=== PATIENT | male | born 1950 | race African-American/Black ===

== ENCOUNTER 2018-03-11 01:21 | Inpatient (IN) | payer MEDICARE, MEDICAID ==
[~2018-03-11] VITALS: Ht 172.7 cm; Wt 59.0 kg
[~2018-03-11 01:21] MED LIST: ASPIRIN; HYDROCHLOROTHIAZIDE
[2018-03-11] MEDS ORDERED: SODIUM CHLORIDE 0.9% 1,000 ML IV ONE ×2 (03:19→03:21)
[2018-03-11 07:01] LABS: CHLORIDE 96 mEq/L (98-107)
[2018-03-11 07:03] LABS: BASOPHILS % 0.3 % (0.0-2.0); HEMATOCRIT. 46.7 % (42.0-52.0); LYMPHOCYTES % 28.7 % (20.0-50.0); MEAN CORPUSCULAR HEMOGLOBIN 28.2 pg (28.0-32.0); MEAN CORPUSCULAR VOLUME 87.4 fL (80.0-94.0); MEAN PLATELET VOLUME 8.8 fl (7.4-10.4); MONOCYTES % 13.5 % (2.0-8.0); NEUTROPHILS % 56.5 % (40.0-76.0); PLATELET 308 x1000/uL (130-400); RED BLOOD CELL COUNT 5.34 mill/uL (4.7-6.1); RED CELL DISTRIBUTION WIDTH 16.1 % (11.6-14.6)
[2018-03-11 07:04] LABS: PARTIAL THROMBOPLASTIN TIME 28.5 sec (23.4-31.0); PROTHROMBIN TIME 10.4 sec (9.1-11.1)
[2018-03-11 07:39] LABS: CLARITY URINE CLOUDY (CLEAR); COLOR URINE YELLOW (YELLOW); KETONES URINE NEGATIVE (NEGATIVE); LEUKOCYTE ESTERASE URINE 3+ (NEGATIVE); NITRITE URINE NEGATIVE (NEGATIVE); OCCULT BLOOD URINE 1+ (NEGATIVE); PROTEIN URINE NEGATIVE (NEGATIVE); SPECIFIC GRAVITY URINE 1.008 (1.005-1.030); UROBILINOGEN URINE 0.2 E.U./dL (0.2-1.0)
[2018-03-11] MEDS ORDERED: MAGNESIUM/ALUMINUM HYDROXIDE/SIMETHICONE 30ML UDC PO PRN (10:30)
[2018-03-11] MEDS ORDERED: CLONIDINE 0.1MG TABLET PO PRN (10:30)
[2018-03-11] MEDS ORDERED: ONDANSETRON HCL 4MG/2ML INJ IV PRN (10:30)
[2018-03-11] MEDS ORDERED: GUAIFENESIN 200MG/10ML SUGAR FREE UDC PO PRN (10:30)
[2018-03-11] MEDS ORDERED: IPRATROPIUM/ALBUTEROL 0.5-3(2.5)MG/3ML NEB INH PRN (10:30)
[2018-03-11] MEDS ORDERED: ACETAMINOPHEN 325MG TABLET PO PRN (10:30)
[2018-03-11] MEDS ORDERED: DOCUSATE SODIUM 100MG CAPSULE PO PRN (10:30)
[2018-03-11 11:30] VITALS: BP 135/54
[2018-03-11 12:30] VITALS: BP 135/54
[2018-03-11] MEDS ORDERED: CEFTRIAXONE 1,000 MG in DEXTROSE 5% WATER 50 ML IV SCH (15:30)
[2018-03-11 16:00] VITALS: BP 112/56
[2018-03-11] MEDS: LOSARTAN POTASSIUM 25 MG TABLET PO SCH (18:45)
[2018-03-11] MEDS: PANTOPRAZOLE SODIUM 40 MG/VIAL IV SCH (18:46)
[2018-03-11] MEDS: ASPIRIN 81MG EC TABLET PO SCH (18:46)
[2018-03-11] MEDS: ENOXAPARIN 40MG/0.4ML SYR SUBCUT SCH (18:46)
[2018-03-11 20:00] VITALS: BP 122/64
[2018-03-11] MEDS ORDERED: AMIO100T4 PO (20:16)
[2018-03-11] MEDS ORDERED: ACYC200C PO (20:16)
[2018-03-11] MEDS ORDERED: BENA10TA10 PO (20:16)
[2018-03-11] MEDS ORDERED: PRAV40TA58 PO (20:16)
[2018-03-11] MEDS ORDERED: SENN8.6T71 PO (20:16)
[2018-03-11] MEDS ORDERED: CARV3.1242 PO (20:16)
[2018-03-11] MEDS ORDERED: SPIR25TA6 PO (20:16)
[2018-03-11] MEDS ORDERED: FURO20TA4 PO (20:16)
[2018-03-11] MEDS: AMLODIPINE 5MG TABLET PO SCH (21:12)
[2018-03-11] MEDS: CARVEDILOL 3.125 MG TABLET PO SCH (21:12)
[2018-03-11] MEDS: ATORVASTATIN CALCIUM 40MG TABLET PO SCH (21:12)
[2018-03-12] VITALS: BP 149/93
[2018-03-12 04:00] VITALS: BP 101/45
[2018-03-12 07:29] LABS: CHLORIDE 96 mEq/L (98-107)
[2018-03-12 07:31] LABS: HEMATOCRIT. 40.2 % (42.0-52.0); HEMOGLOBIN. 13.1 g/dL (14.0-18.0); MEAN CORPUSCULAR HEMOGLOBIN 28.3 pg (28.0-32.0); MEAN CORPUSCULAR VOLUME 86.8 fL (80.0-94.0); MEAN PLATELET VOLUME 8.6 fl (7.4-10.4); PLATELET 311 x1000/uL (130-400); RED BLOOD CELL COUNT 4.62 mill/uL (4.7-6.1); RED CELL DISTRIBUTION WIDTH 16.4 % (11.6-14.6)
[2018-03-12 07:36] LABS: PHOSPHORUS 3.2 mg/dL (2.5-4.9)
[2018-03-12 07:37] LABS: LDL CHOLESTEROL 76 mg/dL (5-100)
[2018-03-12 07:39] LABS: HDL CHOLESTEROL 67 mg/dL (40-59)
[2018-03-12 08:00] VITALS: BP 102/55
[2018-03-12] MEDS: CARVEDILOL 3.125 MG TABLET PO SCH ×2 (09:00→22:11)
[2018-03-12] MEDS: AMLODIPINE 5MG TABLET PO SCH ×2 (09:00→22:12)
[2018-03-12] MEDS: LOSARTAN POTASSIUM 25 MG TABLET PO SCH (09:00)
[2018-03-12] MEDS: ASPIRIN 81MG EC TABLET PO SCH (09:39)
[2018-03-12] MEDS: PANTOPRAZOLE SODIUM 40 MG/VIAL IV SCH (09:39)
[2018-03-12 12:28] VITALS: BP 102/44
[2018-03-12 12:33] LABS: PLATELET ESTIMATE NORMAL
[2018-03-12 16:25] VITALS: BP 110/52
[2018-03-12] MEDS: SODIUM CHLORIDE 0.9% 1,000 ML IV SCH (16:40)
[2018-03-12] MEDS: CEFTRIAXONE 1,000 MG in DEXTROSE 5% WATER 50 ML IV SCH (17:17)
[2018-03-12] MEDS: ENOXAPARIN 40MG/0.4ML SYR SUBCUT SCH (17:18)
[2018-03-12 20:00] VITALS: BP 125/56
[2018-03-12] MEDS: ATORVASTATIN CALCIUM 40MG TABLET PO SCH (22:11)
[2018-03-13] VITALS: BP 125/58
[2018-03-13] MEDS: SODIUM CHLORIDE 0.9% 1,000 ML IV SCH ×2 (03:50→17:10)
[2018-03-13 04:00] VITALS: BP 141/81
[2018-03-13 07:37] LABS: BASOPHILS % 0.6 % (0.0-2.0); HEMATOCRIT. 41.1 % (42.0-52.0); HEMOGLOBIN. 13.3 g/dL (14.0-18.0); LYMPHOCYTES % 30.1 % (20.0-50.0); MEAN CORPUSCULAR HEMOGLOBIN 28.1 pg (28.0-32.0); MEAN CORPUSCULAR VOLUME 86.8 fL (80.0-94.0); MEAN PLATELET VOLUME 8.6 fl (7.4-10.4); MONOCYTES % 14.4 % (2.0-8.0); NEUTROPHILS % 52.9 % (40.0-76.0); PLATELET 296 x1000/uL (130-400); RED BLOOD CELL COUNT 4.73 mill/uL (4.7-6.1); RED CELL DISTRIBUTION WIDTH 15.9 % (11.6-14.6)
[2018-03-13 08:00] VITALS: BP 134/60
[2018-03-13] MEDS: PANTOPRAZOLE SODIUM 40 MG/VIAL IV SCH (09:00)
[2018-03-13] MEDS: LOSARTAN POTASSIUM 25 MG TABLET PO SCH (10:12)
[2018-03-13] MEDS: AMLODIPINE 5MG TABLET PO SCH (10:13)
[2018-03-13] MEDS: CARVEDILOL 3.125 MG TABLET PO SCH (10:13)
[2018-03-13] MEDS: ASPIRIN 81MG EC TABLET PO SCH (10:13)
[2018-03-13 10:54] LABS: CHLORIDE 99 mEq/L (98-107)
[2018-03-13 12:00] VITALS: BP 138/64
[2018-03-13] MEDS: CEFTRIAXONE 1,000 MG in DEXTROSE 5% WATER 50 ML IV SCH (14:00)
[2018-03-13 16:00] VITALS: BP 123/68
[2018-03-13 16:05] VITALS: BP 125/66
[2018-03-13] MEDS: ENOXAPARIN 40MG/0.4ML SYR SUBCUT SCH (17:19)
== END 2018-03-13 19:35 | disposition home health service (06) | DRG 689 ==
LOC: ER 01:21 → 5WST 05:33 → EDBEDREQ 05:35 → ENRESERV 11:18
PROVIDERS: ADMIT Family Medicine Adult Medicine; ATTEND Family Medicine Adult Medicine
DX: N39.0 Urinary tract infection, site not specified (principal); I50.33 Acute on chronic diastolic (congestive) heart failure; E87.1 Hypo-osmolality and hyponatremia; I69.351 Hemiplegia and hemiparesis following cerebral infarction affecting right dominant side; I42.9 Cardiomyopathy, unspecified; I11.0 Hypertensive heart disease with heart failure; B96.20 Unspecified Escherichia coli [E. coli] as the cause of diseases classified elsewhere; I50.9 Heart failure, unspecified; E78.00 Pure hypercholesterolemia, unspecified; J44.9 Chronic obstructive pulmonary disease, unspecified; Z79.82 Long term (current) use of aspirin; Z79.899 Other long term (current) drug therapy
CPT/HCPCS: 36415; 71045; 74176; 80048; 80061; 82140; 83605; 83735; 83880; 84100; 84484; 87077; 87186; 93005; 93306; 93970; 96360; 96361; 97162; 99285; C1893; C9113; J0696; J1650; J7030; J7040; J7060; A4315

== ENCOUNTER 2019-03-28 22:50 | Emergency (ER) | payer MEDICARE, MEDICAID ==
[~2019-03-28] VITALS: Ht 175.3 cm; Wt 60.0 kg
[~2019-03-28 22:50] MED LIST changes: +ACYC200C PO; +AMIO100T4 PO; +BENA10TA74 PO; +FURO20TA4 PO; -HYDROCHLOROTHIAZIDE; +LEVO500T2 MT; +PRAV40TA58 PO; +SENN8.6T71 PO
[2019-03-29 02:17] VITALS: BP 164/80
== END 2019-03-29 03:04 | disposition home or self-care (01) ==
LOC: ER 22:50
DX: T83.098A Other mechanical complication of other urinary catheter, initial encounter (principal); I69.351 Hemiplegia and hemiparesis following cerebral infarction affecting right dominant side; I11.0 Hypertensive heart disease with heart failure; Z79.82 Long term (current) use of aspirin; Z86.19 Personal history of other infectious and parasitic diseases; Y84.6 Urinary catheterization as the cause of abnormal reaction of the patient, or of later complication, without mention of misadventure at the time of the procedure; Y92.018 Other place in single-family (private) house as the place of occurrence of the external cause
CPT/HCPCS: 51702; 99284

== ENCOUNTER 2019-04-30 21:09 | Inpatient (IN) | payer MEDICARE, MEDICAID ==
[~2019-04-30] VITALS: Ht 172.7 cm; Wt 61.2 kg
[2019-04-30] MEDS ORDERED: METHYLPREDNISOLONE SOD SUCC 125 MG/2 ML VIAL IV STA (22:47)
[2019-04-30] MEDS ORDERED: LEVOFLOXACIN 500MG PREMIX 100 ML IV ONE (23:00)
[2019-04-30] MEDS ORDERED: IPRATROPIUM/ALBUTEROL 0.5-3(2.5)MG/3ML NEB HHN ONE (23:00)
[2019-04-30 23:27] LABS: BASOPHILS % 0.4 % (0.0-2.0); EOSINOPHILS % 3.2 % (0.0-5.0); HEMATOCRIT. 46.1 % (42.0-52.0); HEMOGLOBIN. 15.1 g/dL (14.0-18.0); LYMPHOCYTES % 30.2 % (20.0-50.0); MEAN CORPUSCULAR HEMOGLOBIN 29.2 pg (28.0-32.0); MEAN CORPUSCULAR VOLUME 89.3 fL (80.0-94.0); MEAN PLATELET VOLUME 9.5 fl (7.4-10.4); MONOCYTES % 12.4 % (2.0-8.0); NEUTROPHILS % 53.8 % (40.0-76.0); PLATELET 230 x1000/uL (130-400); RED BLOOD CELL COUNT 5.17 mill/uL (4.7-6.1)
[2019-04-30 23:36] LABS: CHLORIDE 104 mEq/L (98-107); PARTIAL THROMBOPLASTIN TIME 26.9 sec (23.4-31.0); PROTHROMBIN TIME 10.6 sec (9.6-11.0)
[2019-04-30 23:59] LABS: CLARITY URINE TURBID (CLEAR); COLOR URINE YELLOW (YELLOW); KETONES URINE NEGATIVE (NEGATIVE); LEUKOCYTE ESTERASE URINE 3+ (NEGATIVE); NITRITE URINE POSITIVE (NEGATIVE); OCCULT BLOOD URINE NEGATIVE (NEGATIVE); PH URINE 8.5 (4.5-8.0); PROTEIN URINE NEGATIVE (NEGATIVE); SPECIFIC GRAVITY URINE 1.012 (1.005-1.030); UROBILINOGEN URINE 0.2 E.U./dL (0.2-1.0)
[2019-05-01] MEDS ORDERED: SPIR25TA6 MT (01:26)
[2019-05-01] MEDS ORDERED: CARV3.1242 MT (01:26)
[2019-05-01] MEDS ORDERED: ASPI-1497 PO (01:26)
[2019-05-01] MEDS ORDERED: HYDRALAZINE 20MG/ML VIAL IV PRN (07:45)
[2019-05-01] MEDS ORDERED: DOCUSATE SODIUM 100MG CAPSULE PO PRN (07:45)
[2019-05-01] MEDS ORDERED: MAGNESIUM/ALUMINUM HYDROXIDE/SIMETHICONE 30ML UDC PO PRN (07:45)
[2019-05-01] MEDS ORDERED: LORAZEPAM 2MG/ML CPJ IV PRN (07:45)
[2019-05-01] MEDS ORDERED: ONDANSETRON HCL 4MG/2ML INJ IV PRN (07:45)
[2019-05-01] MEDS ORDERED: IPRATROPIUM/ALBUTEROL 0.5-3(2.5)MG/3ML NEB HHN PRN (07:45)
[2019-05-01] MEDS ORDERED: CLONIDINE 0.1MG TABLET PO PRN (07:45)
[2019-05-01] MEDS ORDERED: DIPHENHYDRAMINE 50MG/ML VIAL IV PRN (07:45)
[2019-05-01] MEDS ORDERED: GUAIFENESIN 200MG/10ML SUGAR FREE UDC PO PRN (07:45)
[2019-05-01] MEDS ORDERED: ACETAMINOPHEN 325MG TABLET PO PRN (07:45)
[2019-05-01] MEDS ORDERED: CEFTRIAXONE 1 G PREMIX 50 ML IV SCH (07:45)
[2019-05-01 09:25] VITALS: BP 157/103
[2019-05-01] MEDS ORDERED: MORPHINE SULFATE 2 MG/ML CPJ (NOT FOR IM USE) IV PRN (11:19)
[2019-05-01] MEDS ORDERED: HYDROCODONE/ACETAMINOPHEN 10/325MG TABLET PO PRN (11:19)
[2019-05-01 11:26] VITALS: BP 157/103
[2019-05-01] MEDS: ENOXAPARIN 40MG/0.4ML SYR SUBCUT SCH (11:43)
[2019-05-01] MEDS ORDERED: DIPHENHYDRAMINE 12.5MG/5ML UDC PO PRN (11:45)
[2019-05-01 12:00] VITALS: BP 121/66
[2019-05-01] MEDS: CEFTRIAXONE 1 G PREMIX 50 ML IV SCH (14:52)
[2019-05-01] MEDS: AMIODARONE HCL 200 MG TABLET PO SCH (14:52)
[2019-05-01] MEDS: SODIUM CHLORIDE 0.9% INJ 3ML FLUSH IVF SCH ×2 (14:53→21:24)
[2019-05-01 16:00] VITALS: BP 106/45
[2019-05-01 16:09] LABS: CREATINE KINASE 54 IU/L (39-308)
[2019-05-01 16:10] LABS: CREATINE KINASE MB FRACTION 1.7 ng/mL (0.5-3.6)
[2019-05-01 20:00] VITALS: BP 111/74
[2019-05-02] VITALS (7 sets, daily range): BP systolic 100–159; BP diastolic 40–98
[2019-05-02] MEDS: SODIUM CHLORIDE 0.9% INJ 3ML FLUSH IVF SCH ×3 (05:56→21:49)
[2019-05-02] MEDS: AMIODARONE HCL 200 MG TABLET PO SCH (08:54)
[2019-05-02] MEDS: ENOXAPARIN 40MG/0.4ML SYR SUBCUT SCH (08:54)
[2019-05-02] MEDS ORDERED: MEDICATION NOT ON FORMULARY EA (Amiodarone HCl 200 MG) PO SCH (10:00)
[2019-05-02] MEDS: ASPIRIN 81MG EC TABLET PO SCH (10:50)
[2019-05-02] MEDS: CARVEDILOL 3.125 MG TABLET PO SCH ×2 (10:50→20:54)
[2019-05-02] MEDS: BENAZEPRIL 10MG TABLET PO SCH ×2 (10:50→20:54)
[2019-05-02] MEDS: FUROSEMIDE 20MG TABLET PO SCH (10:50)
[2019-05-02] MEDS ORDERED: ACYCLOVIR 200MG CAPSULE PO SCH (11:00)
[2019-05-02] MEDS: CEFTRIAXONE 1 G PREMIX 50 ML IV SCH (13:42)
[2019-05-02] MEDS ORDERED: ATORVASTATIN CALCIUM 10MG TABLET PO SCH (21:00)
[2019-05-02] MEDS ORDERED: MEDICATION NOT ON FORMULARY EA (Pravastatin Sodium 40 MG) PO SCH (21:00)
[2019-05-02] MEDS: ACYCLOVIR 400 MG TABLET PO SCH (21:49)
[2019-05-03] VITALS: BP 112/41
[2019-05-03 04:00] VITALS: BP 148/74
[2019-05-03] MEDS: SODIUM CHLORIDE 0.9% INJ 3ML FLUSH IVF SCH ×2 (06:22→14:18)
[2019-05-03 07:04] LABS: HEMATOCRIT. 46.1 % (42.0-52.0); HEMOGLOBIN. 14.8 g/dL (14.0-18.0); MEAN CORPUSCULAR HEMOGLOBIN 28.8 pg (28.0-32.0); MEAN CORPUSCULAR VOLUME 89.4 fL (80.0-94.0); RED BLOOD CELL COUNT 5.16 mill/uL (4.7-6.1); RED CELL DISTRIBUTION WIDTH 15.1 % (11.6-14.6)
[2019-05-03 07:16] LABS: CHLORIDE 103 mEq/L (98-107)
[2019-05-03 07:25] LABS: CREATINE KINASE 43 IU/L (39-308); CREATINE KINASE MB FRACTION 1.2 ng/mL (0.5-3.6)
[2019-05-03] MEDS: CARVEDILOL 3.125 MG TABLET PO SCH (09:29)
[2019-05-03] MEDS: FUROSEMIDE 20MG TABLET PO SCH (09:29)
[2019-05-03] MEDS: ASPIRIN 81MG EC TABLET PO SCH (09:29)
[2019-05-03] MEDS: ACYCLOVIR 400 MG TABLET PO SCH (09:29)
[2019-05-03] MEDS: AMIODARONE HCL 200 MG TABLET PO SCH (09:29)
[2019-05-03] MEDS: BENAZEPRIL 10MG TABLET PO SCH (09:29)
[2019-05-03] MEDS: ENOXAPARIN 40MG/0.4ML SYR SUBCUT SCH (09:30)
[2019-05-03 12:00] VITALS: BP 146/52
[2019-05-03] MEDS: CEFTRIAXONE 1 G PREMIX 50 ML IV SCH (12:40)
[2019-05-03 14:40] VITALS: BP 146/52
[2019-05-03 16:00] VITALS: BP 103/48
== END 2019-05-03 18:30 | disposition home or self-care (01) | DRG 291 ==
LOC: ER 21:09 → 6WST 05-01 01:04 → EDBEDREQ 05-01 01:09 → EDBEDREQTM 05-01 01:09 → EDBEDREQDT 05-01 01:09 → ENRESERV 05-01 08:33
PROVIDERS: ADMIT Internal Medicine; ATTEND Internal Medicine
DX: I11.0 Hypertensive heart disease with heart failure (principal); J96.00 Acute respiratory failure, unspecified whether with hypoxia or hypercapnia; N39.0 Urinary tract infection, site not specified; I50.23 Acute on chronic systolic (congestive) heart failure; I69.30 Unspecified sequelae of cerebral infarction; Z79.899 Other long term (current) drug therapy
CPT/HCPCS: 36415; 71045; 80053; 81003; 82550; 82553; 83605; 83880; 84484; 85025; 87804; 93005; 93970; 94640; 99285; J0696; J1650; J1956; J2930

== ENCOUNTER 2019-05-06 09:24 | Inpatient (IN) | payer MEDICARE, MEDICAID ==
[~2019-05-06] VITALS: Ht 177.8 cm; Wt 78.9 kg
[~2019-05-06 09:24] MED LIST changes: +ASPI-1497 PO; -ASPIRIN; +CARV3.1242 MT; +SPIR25TA6 MT
[2019-05-06] MEDS ORDERED: ALBUTEROL (0.083%) 2.5MG/3ML NEB HHN STA (09:40)
[2019-05-06] MEDS ORDERED: IPRATROPIUM BROMIDE (0.02%) 0.5MG/2.5ML NEB HHN STA (09:40)
[2019-05-06] MEDS ORDERED: ASPIRIN 81MG TABLET PO ONE (09:45)
[2019-05-06] MEDS ORDERED: NITROGLYCERIN 0.4MG TABLET SL SL PRN (09:45)
[2019-05-06 10:21] LABS: BASOPHILS % 0.3 % (0.0-2.0); EOSINOPHILS % 3.4 % (0.0-5.0); HEMATOCRIT. 43.1 % (42.0-52.0); MEAN CORPUSCULAR HEMOGLOBIN 28.9 pg (28.0-32.0); MEAN CORPUSCULAR VOLUME 88.8 fL (80.0-94.0); MONOCYTES % 4.7 % (2.0-8.0); NEUTROPHILS % 62.6 % (40.0-76.0); PLATELET 209 x1000/uL (130-400); RED BLOOD CELL COUNT 4.85 mill/uL (4.7-6.1); RED CELL DISTRIBUTION WIDTH 15.4 % (11.6-14.6)
[2019-05-06 11:38] LABS: CHLORIDE 107 mEq/L (98-107)
[2019-05-06 12:40] LABS: BG BASE EXCESS -2.5 mmol/L (-2.0-2.0); BG BILEVEL POS AIRWAY PRESSURE 15/5; BG CARBOXYHEMOGLOBIN 0.2 % (0.5-1.5); BG DEOXYHEMOGLOBIN 0.6 % (0.0-5.0); BG FRACTION INSPIRED OXYGEN 50; BG HCO3 ACT 22.2 mmol/L (22.0-26.0); BG OXYGEN SATURATION 99.4 % (92.0-98.5); BG OXYHEMOGLOBIN 99.2 % (94.0-97.0); BG PH 7.384 (7.350-7.450); BG PO2 194.1 mmHg (75.0-100.0); BG SAMPLE SITE LEFT BRACHIAL; BG TOTAL HEMOGLOBIN 13.7 g/dL (12.0-18.0); BG VENT MODE MASK - BIPAP
[2019-05-06] MEDS ORDERED: FUROSEMIDE 40MG/4ML VIAL IVP ONE (13:00)
[2019-05-06 16:00] VITALS: BP 158/55
[2019-05-06 16:20] VITALS: BP 149/51
[2019-05-06 16:30] VITALS: BP 149/51
[2019-05-06] MEDS ORDERED: DIPHENHYDRAMINE 50MG/ML VIAL IV PRN (19:45)
[2019-05-06] MEDS ORDERED: ONDANSETRON HCL 4MG/2ML INJ IV PRN (19:45)
[2019-05-06] MEDS ORDERED: MORPHINE SULFATE 2 MG/ML CPJ (NOT FOR IM USE) IV PRN (19:45)
[2019-05-06] MEDS ORDERED: IPRATROPIUM/ALBUTEROL 0.5-3(2.5)MG/3ML NEB HHN PRN (19:45)
[2019-05-06] MEDS ORDERED: ACETAMINOPHEN 325MG TABLET PO PRN (19:45)
[2019-05-06] MEDS ORDERED: HYDRALAZINE 20MG/ML VIAL IV PRN (19:45)
[2019-05-06] MEDS ORDERED: HYDROCODONE/ACETAMINOPHEN 10/325MG TABLET PO PRN (19:45)
[2019-05-06] MEDS ORDERED: LORAZEPAM 2MG/ML CPJ IV PRN (19:45)
[2019-05-06] MEDS ORDERED: DOCUSATE SODIUM 100MG CAPSULE PO PRN (19:45)
[2019-05-06] MEDS ORDERED: MAGNESIUM/ALUMINUM HYDROXIDE/SIMETHICONE 30ML UDC PO PRN (19:45)
[2019-05-06] MEDS ORDERED: GUAIFENESIN 200MG/10ML SUGAR FREE UDC PO PRN (19:45)
[2019-05-06] MEDS ORDERED: CLONIDINE 0.1MG TABLET PO PRN (19:45)
[2019-05-06 20:00] VITALS: BP 129/50
[2019-05-06] MEDS: ENOXAPARIN 40MG/0.4ML SYR SUBCUT SCH (21:21)
[2019-05-06] MEDS: SODIUM CHLORIDE 0.9% INJ 3ML FLUSH IVF SCH (21:40)
[2019-05-06] MEDS ORDERED: LEVE500T19 PO (23:28)
[2019-05-06 23:54] LABS: CREATINE KINASE MB FRACTION 2.5 ng/mL (0.5-3.6)
[2019-05-07] VITALS: BP 115/40
[2019-05-07] MEDS: IPRATROPIUM/ALBUTEROL 0.5-3(2.5)MG/3ML NEB HHN PRN ×2 (00:48→05:42)
[2019-05-07 04:00] VITALS: BP 140/50
[2019-05-07] MEDS: SODIUM CHLORIDE 0.9% INJ 3ML FLUSH IVF SCH ×3 (05:44→20:54)
[2019-05-07 07:07] LABS: BASOPHILS % 0.5 % (0.0-2.0); EOSINOPHILS % 1.9 % (0.0-5.0); HEMATOCRIT. 46.1 % (42.0-52.0); HEMOGLOBIN. 14.6 g/dL (14.0-18.0); LYMPHOCYTES % 31.5 % (20.0-50.0); MEAN CORPUSCULAR HEMOGLOBIN 28.5 pg (28.0-32.0); MEAN CORPUSCULAR VOLUME 89.9 fL (80.0-94.0); MEAN PLATELET VOLUME 9.8 fl (7.4-10.4); MONOCYTES % 12.4 % (2.0-8.0); NEUTROPHILS % 53.7 % (40.0-76.0); PLATELET 164 x1000/uL (130-400); RED BLOOD CELL COUNT 5.13 mill/uL (4.7-6.1); RED CELL DISTRIBUTION WIDTH 15.2 % (11.6-14.6)
[2019-05-07 07:35] LABS: CHLORIDE 105 mEq/L (98-107)
[2019-05-07 07:43] LABS: CREATINE KINASE 78 IU/L (39-308); CREATINE KINASE MB FRACTION 2.9 ng/mL (0.5-3.6)
[2019-05-07 08:23] VITALS: BP 150/74
[2019-05-07] MEDS: FUROSEMIDE 40MG/4ML VIAL IVP SCH (10:26)
[2019-05-07 11:42] VITALS: BP 128/41
[2019-05-07 16:04] VITALS: BP 118/45
[2019-05-07 20:00] VITALS: BP 113/80
[2019-05-07] MEDS: ENOXAPARIN 40MG/0.4ML SYR SUBCUT SCH (20:50)
[2019-05-08] VITALS (7 sets, daily range): BP systolic 112–138; BP diastolic 40–68
[2019-05-08] MEDS: SODIUM CHLORIDE 0.9% INJ 3ML FLUSH IVF SCH ×3 (06:43→20:03)
[2019-05-08] MEDS: FUROSEMIDE 40MG/4ML VIAL IVP SCH (08:10)
[2019-05-08] MEDS: ENOXAPARIN 40MG/0.4ML SYR SUBCUT SCH (20:03)
[2019-05-09] VITALS: BP 130/60
[2019-05-09 04:00] VITALS: BP 143/62
[2019-05-09] MEDS: SODIUM CHLORIDE 0.9% INJ 3ML FLUSH IVF SCH ×2 (05:37→21:06)
[2019-05-09 08:00] VITALS: BP 142/61
[2019-05-09 08:43] LABS: CHLORIDE 106 mEq/L (98-107)
[2019-05-09] MEDS: FUROSEMIDE 40MG/4ML VIAL IVP SCH (10:03)
[2019-05-09] MEDS ORDERED: DOCUSATE SODIUM SUGAR FREE 100MG/10ML UDC PO PRN (10:15)
[2019-05-09 10:34] LABS: HEMATOCRIT. 43.1 % (42.0-52.0); HEMOGLOBIN. 14.1 g/dL (14.0-18.0); MEAN CORPUSCULAR HEMOGLOBIN 28.8 pg (28.0-32.0); MEAN CORPUSCULAR VOLUME 88.4 fL (80.0-94.0); MEAN PLATELET VOLUME 10.5 fl (7.4-10.4); PLATELET 176 x1000/uL (130-400); RED BLOOD CELL COUNT 4.87 mill/uL (4.7-6.1)
[2019-05-09] MEDS: DOCUSATE SODIUM SUGAR FREE 100MG/10ML UDC PO PRN (10:38)
[2019-05-09 12:14] LABS: PLATELET ESTIMATE NORMAL
[2019-05-09 16:00] VITALS: BP 117/56
[2019-05-09 20:00] VITALS: BP 154/65
[2019-05-09] MEDS: ENOXAPARIN 40MG/0.4ML SYR SUBCUT SCH (21:06)
[2019-05-10] VITALS (8 sets, daily range): BP systolic 106–182; BP diastolic 53–84
[2019-05-10] MEDS: SODIUM CHLORIDE 0.9% INJ 3ML FLUSH IVF SCH ×3 (05:27→21:44)
[2019-05-10] MEDS: FUROSEMIDE 40MG/4ML VIAL IVP SCH (09:11)
[2019-05-10] MEDS ORDERED: DIGOXIN 250MCG TABLET PO NR (10:45)
[2019-05-10] MEDS: LOSARTAN POTASSIUM 25 MG TABLET PO SCH (16:49)
[2019-05-10] MEDS: ENOXAPARIN 40MG/0.4ML SYR SUBCUT SCH (20:57)
[2019-05-10] MEDS: CARVEDILOL 3.125 MG TABLET PO SCH (21:44)
[2019-05-11] VITALS: BP 124/58
[2019-05-11 04:00] VITALS: BP 123/58
[2019-05-11] MEDS: SODIUM CHLORIDE 0.9% INJ 3ML FLUSH IVF SCH ×3 (05:33→21:05)
[2019-05-11 08:00] VITALS: BP 135/53
[2019-05-11] MEDS: LOSARTAN POTASSIUM 25 MG TABLET PO SCH (08:05)
[2019-05-11] MEDS: CARVEDILOL 3.125 MG TABLET PO SCH ×2 (08:05→21:04)
[2019-05-11] MEDS: FUROSEMIDE 40MG/4ML VIAL IVP SCH (08:05)
[2019-05-11 12:18] VITALS: BP 102/49
[2019-05-11] MEDS: DOCUSATE SODIUM SUGAR FREE 100MG/10ML UDC PO PRN (14:19)
[2019-05-11 16:09] VITALS: BP 100/41
[2019-05-11 20:00] VITALS: BP 114/55
[2019-05-11] MEDS: ENOXAPARIN 40MG/0.4ML SYR SUBCUT SCH (21:04)
[2019-05-12] VITALS: BP 156/71
[2019-05-12 04:00] VITALS: BP 132/68
[2019-05-12] MEDS: SODIUM CHLORIDE 0.9% INJ 3ML FLUSH IVF SCH (06:50)
[2019-05-12 08:00] VITALS: BP 154/82
[2019-05-12] MEDS: FUROSEMIDE 40MG/4ML VIAL IVP SCH (08:26)
[2019-05-12] MEDS: CARVEDILOL 3.125 MG TABLET PO SCH (08:27)
[2019-05-12] MEDS: LOSARTAN POTASSIUM 25 MG TABLET PO SCH (08:27)
[2019-05-12] MEDS ORDERED: LEVETIRACETAM 500MG TABLET PO SCH (09:00)
[2019-05-12 12:00] VITALS: BP 129/52
== END 2019-05-12 14:27 | disposition home or self-care (01) | DRG 291 ==
LOC: ER 09:24 → 6WST 12:58 → EDBEDREQTM 13:01 → EDBEDREQSVC 13:01 → ENRESERV 13:55
PROVIDERS: ADMIT Internal Medicine; ATTEND Hospitalist
DX: I11.0 Hypertensive heart disease with heart failure (principal); J96.00 Acute respiratory failure, unspecified whether with hypoxia or hypercapnia; E46 Unspecified protein-calorie malnutrition; G81.91 Hemiplegia, unspecified affecting right dominant side; I50.43 Acute on chronic combined systolic (congestive) and diastolic (congestive) heart failure; I42.9 Cardiomyopathy, unspecified; J44.9 Chronic obstructive pulmonary disease, unspecified; E78.00 Pure hypercholesterolemia, unspecified; G40.909 Epilepsy, unspecified, not intractable, without status epilepticus; H54.8 Legal blindness, as defined in USA; I69.820 Aphasia following other cerebrovascular disease
CPT/HCPCS: 36415; 36600; 71045; 80048; 80053; 82375; 82550; 82553; 82805; 82962; 83880; 84484; 85025; 93005; 93306; 93970; 94640; 94660; 97162; 97530; J0360; J1650; J1940; J2060

== ENCOUNTER 2019-07-24 00:23 | Inpatient (IN) | payer MEDICARE, MEDICAID ==
[~2019-07-24] VITALS: Ht 167.6 cm; Wt 58.1 kg
[2019-07-24] VITALS (7 sets, daily range): BP systolic 74–123; BP diastolic 40–62
[~2019-07-24 00:23] MED LIST changes: -ACYC200C PO; +LEVE500T19 PO; -LEVO500T2 MT
[2019-07-24] MEDS ORDERED: SODIUM CHLORIDE 0.9% 250 ML IV ONE ×2 (01:15→12:30)
[2019-07-24 01:37] LABS: HEMATOCRIT. 41.6 % (42.0-52.0); HEMOGLOBIN. 13.9 g/dL (14.0-18.0); MEAN CORPUSCULAR HEMOGLOBIN 29.6 pg (28.0-32.0); MEAN CORPUSCULAR VOLUME 88.9 fL (80.0-94.0); MEAN PLATELET VOLUME 8.4 fl (7.4-10.4); PLATELET 274 x1000/uL (130-400); RED BLOOD CELL COUNT 4.68 mill/uL (4.7-6.1); RED CELL DISTRIBUTION WIDTH 15.1 % (11.6-14.6)
[2019-07-24 01:45] LABS: CHLORIDE 106 mEq/L (98-107)
[2019-07-24 02:03] LABS: INR 1.1; PARTIAL THROMBOPLASTIN TIME 25.7 sec (23.4-31.0); PROTHROMBIN TIME 11.6 sec (9.6-11.0)
[2019-07-24] MEDS ORDERED: ASPIRIN 325MG TABLET PO SCH (04:15)
[2019-07-24] MEDS ORDERED: CEFTRIAXONE 1 G PREMIX 50 ML IV SCH (04:15)
[2019-07-24 06:17] LABS: PLATELET ESTIMATE NORMAL
[2019-07-24] MEDS ORDERED: ONDANSETRON HCL 4MG/2ML INJ IV PRN (06:30)
[2019-07-24] MEDS ORDERED: TRAMADOL 50MG TABLET PO PRN (06:30)
[2019-07-24] MEDS ORDERED: GUAIFENESIN 200MG/10ML SUGAR FREE UDC PO PRN (06:30)
[2019-07-24] MEDS ORDERED: DOCUSATE SODIUM 100MG CAPSULE PO PRN (06:30)
[2019-07-24] MEDS ORDERED: IPRATROPIUM/ALBUTEROL 0.5-3(2.5)MG/3ML NEB HHN PRN (06:30)
[2019-07-24] MEDS ORDERED: MAGNESIUM/ALUMINUM HYDROXIDE/SIMETHICONE 30ML UDC PO PRN (06:30)
[2019-07-24] MEDS ORDERED: NITROGLYCERIN 0.4MG TABLET SL SL PRN (06:30)
[2019-07-24] MEDS ORDERED: ACETAMINOPHEN 325MG TABLET PO PRN ×2 (06:30)
[2019-07-24] MEDS ORDERED: CLONIDINE 0.1MG TABLET PO PRN (06:30)
[2019-07-24] MEDS ORDERED: ENOXAPARIN 40MG/0.4ML SYR SUBCUT SCH (09:00)
[2019-07-24] MEDS ORDERED: LEVOFLOXACIN 500MG PREMIX 100 ML IV ONE (09:00)
[2019-07-24] MEDS: CARVEDILOL 3.125 MG TABLET PO SCH ×2 (09:00→20:47)
[2019-07-24] MEDS: ASPIRIN 325MG EC TABLET PO SCH (10:10)
[2019-07-24] MEDS: LEVETIRACETAM 500MG TABLET PO SCH ×2 (10:10→20:46)
[2019-07-24] MEDS: FAMOTIDINE 20MG TABLET PO SCH (10:10)
[2019-07-24] MEDS: ZINC SULFATE 220 MG ( 50 ) CAPSULE PO SCH (10:10)
[2019-07-24] MEDS: ASCORBIC ACID 500 MG TABLET PO SCH ×2 (10:11→20:46)
[2019-07-24] MEDS ORDERED: METH50TA5 PO (10:25)
[2019-07-24] MEDS ORDERED: METH1TAB33 PO (10:26)
[2019-07-24] MEDS ORDERED: LEVOFLOXACIN 500MG PREMIX 100 ML IV SCH (11:00)
[2019-07-24] MEDS: DUTASTERIDE 0.5MG CAPSULE PO SCH (11:55)
[2019-07-24 17:37] LABS: CREATINE KINASE MB FRACTION 3.4 ng/mL (0.5-3.6)
[2019-07-24] MEDS: TAMSULOSIN HCL 0.4MG SR CAPSULE PO SCH (20:46)
[2019-07-24] MEDS ORDERED: ZOLPIDEM TARTRATE 5MG TABLET PO PRN (21:00)
[2019-07-25] VITALS (7 sets, daily range): BP systolic 110–149; BP diastolic 59–63
[2019-07-25] MEDS ORDERED: CEFTRIAXONE 1 G PREMIX 50 ML IV SCH (05:00)
[2019-07-25] MEDS: CARVEDILOL 3.125 MG TABLET PO SCH ×2 (09:00→21:11)
[2019-07-25] MEDS: ASPIRIN 325MG EC TABLET PO SCH (09:24)
[2019-07-25] MEDS: ASCORBIC ACID 500 MG TABLET PO SCH ×2 (09:24→21:11)
[2019-07-25] MEDS: DUTASTERIDE 0.5MG CAPSULE PO SCH (09:24)
[2019-07-25] MEDS: ENOXAPARIN 30MG/0.3ML SYR SUBCUT SCH (09:24)
[2019-07-25] MEDS: ZINC SULFATE 220 MG ( 50 ) CAPSULE PO SCH (09:24)
[2019-07-25] MEDS: LEVETIRACETAM 500MG TABLET PO SCH ×2 (09:24→21:12)
[2019-07-25] MEDS: FAMOTIDINE 20MG TABLET PO SCH (09:24)
[2019-07-25 09:50] LABS: *BARBITURATES SCREEN URINE NEGATIVE (NEGATIVE); *BENZODIAZEPINES SCREEN URINE NEGATIVE (NEGATIVE); *COCAINE SCREEN URINE NEGATIVE (NEGATIVE); METHADONE URINE SCREEN NEGATIVE (NEGATIVE)
[2019-07-25 09:51] LABS: *AMPHETAMINES SCREEN URINE NEGATIVE (NEGATIVE); CANNABINOID URINE SCREEN NEGATIVE (NEGATIVE); OPIATES URINE SCREEN NEGATIVE (NEGATIVE); PHENCYCLIDINE URINE SCREEN NEGATIVE (NEGATIVE)
[2019-07-25] MEDS: LEVOFLOXACIN 250MG PREMIX 50 ML IV SCH (13:04)
[2019-07-25 20:00] LABS: BASOPHILS % 0.2 % (0.0-2.0); EOSINOPHILS % 1.9 % (0.0-5.0); HEMATOCRIT. 35.5 % (42.0-52.0); HEMOGLOBIN. 11.9 g/dL (14.0-18.0); LYMPHOCYTES % 10.7 % (20.0-50.0); MEAN CORPUSCULAR HEMOGLOBIN 29.7 pg (28.0-32.0); MEAN CORPUSCULAR VOLUME 88.7 fL (80.0-94.0); MEAN PLATELET VOLUME 8.3 fl (7.4-10.4); NEUTROPHILS % 76.2 % (40.0-76.0); PLATELET 274 x1000/uL (130-400); RED BLOOD CELL COUNT 4.01 mill/uL (4.7-6.1); RED CELL DISTRIBUTION WIDTH 15.4 % (11.6-14.6)
[2019-07-25 20:08] LABS: CHLORIDE 113 mEq/L (98-107)
[2019-07-25 20:15] LABS: PHOSPHORUS 3.5 mg/dL (2.5-4.9)
[2019-07-25 20:17] LABS: CREATINE KINASE 229 IU/L (39-308)
[2019-07-25] MEDS: TAMSULOSIN HCL 0.4MG SR CAPSULE PO SCH (21:12)
[2019-07-26] VITALS: BP 132/55
[2019-07-26 04:00] VITALS: BP 127/65
[2019-07-26 08:00] VITALS: BP 166/74
[2019-07-26] MEDS: LEVETIRACETAM 500MG TABLET PO SCH ×2 (09:23→20:42)
[2019-07-26] MEDS: ASPIRIN 325MG EC TABLET PO SCH (09:23)
[2019-07-26] MEDS: FAMOTIDINE 20MG TABLET PO SCH (09:23)
[2019-07-26] MEDS: ZINC SULFATE 220 MG ( 50 ) CAPSULE PO SCH (09:23)
[2019-07-26] MEDS: ASCORBIC ACID 500 MG TABLET PO SCH ×2 (09:23→20:42)
[2019-07-26] MEDS: CARVEDILOL 3.125 MG TABLET PO SCH ×2 (09:24→20:43)
[2019-07-26] MEDS: CEFTRIAXONE 1 G PREMIX 50 ML IV SCH (09:25)
[2019-07-26] MEDS: ENOXAPARIN 30MG/0.3ML SYR SUBCUT SCH (09:37)
[2019-07-26] MEDS: DUTASTERIDE 0.5MG CAPSULE PO SCH (11:09)
[2019-07-26] MEDS: LEVOFLOXACIN 250MG PREMIX 50 ML IV SCH (11:09)
[2019-07-26 12:00] VITALS: BP 140/67
[2019-07-26 16:00] VITALS: BP 130/62
[2019-07-26 20:00] VITALS: BP 115/62
[2019-07-26] MEDS: TAMSULOSIN HCL 0.4MG SR CAPSULE PO SCH (20:42)
[2019-07-27 00:37] VITALS: BP 136/71
[2019-07-27 04:00] VITALS: BP 136/70
[2019-07-27 08:00] VITALS: BP_SYST 159; BP_DIAS 84; BP_DIAS 89
[2019-07-27] MEDS: FAMOTIDINE 20MG TABLET PO SCH (08:52)
[2019-07-27] MEDS: LEVETIRACETAM 500MG TABLET PO SCH (08:52)
[2019-07-27] MEDS: ENOXAPARIN 30MG/0.3ML SYR SUBCUT SCH (08:52)
[2019-07-27] MEDS: DUTASTERIDE 0.5MG CAPSULE PO SCH (08:52)
[2019-07-27] MEDS: CEFTRIAXONE 1 G PREMIX 50 ML IV SCH (08:52)
[2019-07-27] MEDS: ASCORBIC ACID 500 MG TABLET PO SCH (08:52)
[2019-07-27] MEDS: CARVEDILOL 3.125 MG TABLET PO SCH (08:52)
[2019-07-27] MEDS: ASPIRIN 325MG EC TABLET PO SCH (08:52)
[2019-07-27] MEDS: ZINC SULFATE 220 MG ( 50 ) CAPSULE PO SCH (08:52)
[2019-07-27] MEDS ORDERED: LEVOFLOXACIN 250MG TABLET PO SCH (11:00)
[2019-07-27 11:44] VITALS: BP 127/58
[2019-07-27 12:00] VITALS: BP 114/65
== END 2019-07-27 13:30 | disposition home health service (06) | DRG 698 ==
LOC: ER 01:04 → 7WST 04:09 → SUPCPDRO 06:29 → ENRESERV 07:55 → 6WST 07-25 18:48
PROVIDERS: ADMIT Internal Medicine; ATTEND Internal Medicine
DX: T83.018A Breakdown (mechanical) of other urinary catheter, initial encounter (principal); G92 Toxic encephalopathy; J96.00 Acute respiratory failure, unspecified whether with hypoxia or hypercapnia; N17.0 Acute kidney failure with tubular necrosis; E44.0 Moderate protein-calorie malnutrition; I69.351 Hemiplegia and hemiparesis following cerebral infarction affecting right dominant side; N39.0 Urinary tract infection, site not specified; I42.9 Cardiomyopathy, unspecified; I50.42 Chronic combined systolic (congestive) and diastolic (congestive) heart failure; E78.00 Pure hypercholesterolemia, unspecified; H54.8 Legal blindness, as defined in USA; I11.0 Hypertensive heart disease with heart failure; R74.0 Nonspecific elevation of levels of transaminase and lactic acid dehydrogenase [LDH]; J44.9 Chronic obstructive pulmonary disease, unspecified; G40.909 Epilepsy, unspecified, not intractable, without status epilepticus; N47.2 Paraphimosis; Z20.828 Contact with and (suspected) exposure to other viral communicable diseases; Y83.8 Other surgical procedures as the cause of abnormal reaction of the patient, or of later complication, without mention of misadventure at the time of the procedure; Z79.82 Long term (current) use of aspirin; Z79.84 Long term (current) use of oral hypoglycemic drugs; Z79.899 Other long term (current) drug therapy; Y92.89 Other specified places as the place of occurrence of the external cause; Z68.20 Body mass index [BMI] 20.0-20.9, adult
CPT/HCPCS: 36415; 71045; 76770; 80053; 80061; 80305; 82550; 82553; 83036; 83735; 83880; 84100; 84484; 85025; 93005; 93306; 93970; 97162; 97166; 99291; J0696; J1650; J1956; J7050; U0003-CS

== ENCOUNTER 2021-01-13 22:21 | Inpatient (IN) | payer MEDICARE, MEDICAID ==
[~2021-01-13] VITALS: Ht 175.3 cm; Wt 62.1 kg
[~2021-01-13 22:21] MED LIST changes: +METH1TAB33 PO; +METH50TA5 PO
[2021-01-13 23:47] LABS: BASOPHILS % 0.3 % (0.0-2.0); EOSINOPHILS % 0.9 % (0.0-5.0); HEMATOCRIT. 46.5 % (42.0-52.0); HEMOGLOBIN. 15.2 g/dL (14.0-18.0); LYMPHOCYTES % 37.4 % (20.0-50.0); MEAN CORPUSCULAR HEMOGLOBIN 29.1 pg (28.0-32.0); MEAN CORPUSCULAR VOLUME 89.3 fL (80.0-94.0); MEAN PLATELET VOLUME 11.1 fl (7.4-10.4); MONOCYTES % 11.4 % (2.0-8.0); PLATELET 113 x1000/uL (130-400); RED BLOOD CELL COUNT 5.21 mill/uL (4.7-6.1); RED CELL DISTRIBUTION WIDTH 14.5 % (11.6-14.6)
[2021-01-14 00:06] LABS: CHLORIDE 100 mEq/L (98-107)
[2021-01-14 01:35] LABS: CLARITY URINE CLEAR (CLEAR); COLOR URINE YELLOW (YELLOW); KETONES URINE NEGATIVE (NEGATIVE); LEUKOCYTE ESTERASE URINE 2+ (NEGATIVE); NITRITE URINE POSITIVE (NEGATIVE); OCCULT BLOOD URINE TRACE (NEGATIVE); PH URINE 6.5 (4.5-8.0); PROTEIN URINE NEGATIVE (NEGATIVE); SPECIFIC GRAVITY URINE 1.013 (1.005-1.030); UROBILINOGEN URINE 0.2 E.U./dL (0.2-1.0)
[2021-01-14] MEDS ORDERED: CEFTRIAXONE 1 G PREMIX 50 ML IV ONE (02:15)
[2021-01-14] MEDS ORDERED: IOHEXOL-300 100 ML BOTTLE ONE (03:13)
[2021-01-14 08:00] VITALS: BP 138/92
[2021-01-14] MEDS ORDERED: CEFTRIAXONE 1 G PREMIX 50 ML IV SCH (09:45)
[2021-01-14] MEDS ORDERED: CLONIDINE 0.1MG TABLET PO PRN (09:45)
[2021-01-14] MEDS ORDERED: DIPHENHYDRAMINE 50MG/ML VIAL IV PRN (09:45)
[2021-01-14] MEDS ORDERED: KETOROLAC 30MG/ML VIAL IV PRN (09:45)
[2021-01-14] MEDS ORDERED: ONDANSETRON HCL 4MG/2ML INJ IV PRN (09:45)
[2021-01-14] MEDS ORDERED: ACETAMINOPHEN 650MG/20.3ML UDC GT PRN ×2 (09:45)
[2021-01-14] MEDS ORDERED: METHIMAZOLE 5MG TABLET PEG SCH (10:00)
[2021-01-14] MEDS ORDERED: ENOXAPARIN 40MG/0.4ML SYR SUBCUT SCH (10:00)
[2021-01-14] MEDS ORDERED: METOPROLOL TARTRATE 25MG TABLET GT SCH (10:00)
[2021-01-14] MEDS ORDERED: ATOR10TA69 PO (10:49)
[2021-01-14] MEDS ORDERED: DOCU-138 MT (10:49)
[2021-01-14] MEDS ORDERED: RIVA20TA PO (10:49)
[2021-01-14 11:46] VITALS: BP 138/92
[2021-01-14 12:00] VITALS: BP 109/76
[2021-01-14] MEDS: ASPIRIN 81MG TABLET GT SCH (12:47)
[2021-01-14] MEDS: LEVETIRACETAM 500MG/5ML CUP GT SCH ×2 (12:47→22:05)
[2021-01-14] MEDS: SODIUM CHLORIDE 0.9% 1,000 ML IV SCH (12:47)
[2021-01-14] MEDS ORDERED: INFLUENZA VACCINE 05/PF 0.5 ML SYRINGE IM ONE (13:30)
[2021-01-14] MEDS ORDERED: PNEUMOCOCCAL 23-VAL P-SAC VAC 0.5 ML IM ONE (13:30)
[2021-01-14 16:00] VITALS: BP 107/66
[2021-01-14 20:00] VITALS: BP 118/70
[2021-01-14] MEDS: ATORVASTATIN CALCIUM 20MG TABLET GT SCH (22:02)
[2021-01-14] MEDS: FAMOTIDINE 20MG TABLET GT SCH (22:03)
[2021-01-14] MEDS: METHAZOLAMIDE 50MG TABLET GT SCH (22:03)
[2021-01-14] MEDS: CEFTRIAXONE 1,000 MG in DEXTROSE 5% WATER 50 ML IV SCH (22:03)
[2021-01-15] VITALS: BP 125/64
[2021-01-15 04:00] VITALS: BP 120/68
[2021-01-15] MEDS: SODIUM CHLORIDE 0.9% 1,000 ML IV SCH (06:35)
[2021-01-15 08:00] VITALS: BP 131/63
[2021-01-15] MEDS: ASPIRIN 81MG TABLET GT SCH (09:07)
[2021-01-15] MEDS: LEVETIRACETAM 500MG/5ML CUP GT SCH ×2 (09:07→21:49)
[2021-01-15] MEDS: METHIMAZOLE 5MG TABLET PEG SCH (09:07)
[2021-01-15] MEDS: AMIODARONE HCL 200 MG TABLET PO SCH (09:08)
[2021-01-15] MEDS: METHAZOLAMIDE 50MG TABLET GT SCH ×2 (09:10→21:49)
[2021-01-15 12:00] VITALS: BP 121/71
[2021-01-15 16:00] VITALS: BP 140/64
[2021-01-15 20:00] VITALS: BP 158/83
[2021-01-15] MEDS: FAMOTIDINE 20MG TABLET GT SCH (21:49)
[2021-01-15] MEDS: ATORVASTATIN CALCIUM 20MG TABLET GT SCH (21:49)
[2021-01-15] MEDS: CEFTRIAXONE 1,000 MG in DEXTROSE 5% WATER 50 ML IV SCH (21:50)
[2021-01-16] VITALS (7 sets, daily range): BP systolic 116–146; BP diastolic 56–92
[2021-01-16] MEDS: SODIUM CHLORIDE 0.9% 1,000 ML IV SCH (01:34)
[2021-01-16] MEDS: METHAZOLAMIDE 50MG TABLET GT SCH (10:26)
[2021-01-16] MEDS: METHIMAZOLE 5MG TABLET PEG SCH (10:26)
[2021-01-16] MEDS: AMIODARONE HCL 200 MG TABLET PO SCH (10:26)
[2021-01-16] MEDS: ASPIRIN 81MG TABLET GT SCH (10:26)
[2021-01-16] MEDS: LEVETIRACETAM 500MG/5ML CUP GT SCH (10:31)
== END 2021-01-16 21:40 | disposition home or self-care (01) | DRG 699 ==
LOC: ER 22:21 → 6WST 01-14 05:04 → ENRESERV 01-14 08:10
PROVIDERS: ADMIT Internal Medicine; ATTEND Internal Medicine
DX: T83.518A Infection and inflammatory reaction due to other urinary catheter, initial encounter (principal); N12 Tubulo-interstitial nephritis, not specified as acute or chronic; I69.351 Hemiplegia and hemiparesis following cerebral infarction affecting right dominant side; N17.9 Acute kidney failure, unspecified; E03.9 Hypothyroidism, unspecified; E78.00 Pure hypercholesterolemia, unspecified; G40.909 Epilepsy, unspecified, not intractable, without status epilepticus; I11.0 Hypertensive heart disease with heart failure; I70.8 Atherosclerosis of other arteries; I65.21 Occlusion and stenosis of right carotid artery; N40.0 Benign prostatic hyperplasia without lower urinary tract symptoms; I48.0 Paroxysmal atrial fibrillation; I50.9 Heart failure, unspecified; I69.320 Aphasia following cerebral infarction; Z93.1 Gastrostomy status; Z79.899 Other long term (current) drug therapy; Z79.82 Long term (current) use of aspirin
CPT/HCPCS: 36415; 74177; 80053; 81003; 83605; 84484; 85025; 87077; 87186; 90686; 90732; 93005; 99285; J0696; J1650; J1885; J7030; J7060; Q9967

== ENCOUNTER 2021-08-19 09:47 | Inpatient (IN) | payer MEDICARE, MEDICAID ==
[~2021-08-19] VITALS: Ht 182.9 cm; Wt 62.7 kg
[2021-08-19] VITALS (7 sets, daily range): BP systolic 96–156; BP diastolic 51–101
[~2021-08-19 09:47] MED LIST changes: +AMOX1TAB16 MT; -ASPI-1497 PO; +ATOR20TA65 MT; -BENA10TA74 PO; +BENA5TAB40 MT; +CARV12.545 MT; -CARV3.1242 MT; +DOCU-138 MT; +LEVE500S9 PO; -LEVE500T19 PO; +LEVO750T46 MT; -METH50TA5 PO; -PRAV40TA58 PO; +RIVA20TA PO; -SPIR25TA6 MT; +SULF1TAB48 MT
[2021-08-19] MEDS ORDERED: IPRATROPIUM BROMIDE (0.02%) 0.5MG/2.5ML NEB HHN STA (10:34)
[2021-08-19] MEDS ORDERED: ALBUTEROL (0.083%) 2.5MG/3ML NEB HHN STA (10:34)
[2021-08-19 10:55] LABS: BASOPHILS % 0.1 % (0.0-2.0); EOSINOPHILS % 0.6 % (0.0-5.0); HEMATOCRIT. 48.2 % (42.0-52.0); HEMOGLOBIN. 15.3 g/dL (14.0-18.0); MEAN CORPUSCULAR HEMOGLOBIN 27.4 pg (28.0-32.0); MEAN CORPUSCULAR VOLUME 86.3 fL (80.0-94.0); MEAN PLATELET VOLUME 11.5 fl (7.4-10.4); MONOCYTES % 6.6 % (2.0-8.0); NEUTROPHILS % 79.7 % (40.0-76.0); PLATELET 117 x1000/uL (130-400); RED BLOOD CELL COUNT 5.59 mill/uL (4.7-6.1); RED CELL DISTRIBUTION WIDTH 15.5 % (11.6-14.6)
[2021-08-19] MEDS ORDERED: FUROSEMIDE 40MG/4ML VIAL IVP ONE (11:45)
[2021-08-19 11:59] LABS: CHLORIDE 110 mEq/L (98-107)
[2021-08-19 12:00] LABS: INR 1.1; PROTHROMBIN TIME 11.8 sec (9.6-11.0)
[2021-08-19 12:44] LABS: BG BASE EXCESS 0.1 mmol/L (-2.0-2.0); BG CARBOXYHEMOGLOBIN 0.5 % (0.5-1.5); BG DEOXYHEMOGLOBIN 0.5 % (0.0-5.0); BG FRACTION INSPIRED OXYGEN 60; BG HCO3 ACT 24.9 mmol/L (22.0-26.0); BG METHEMOGLOBIN 0.4 % (0.0-1.5); BG OXYGEN SATURATION 99.5 % (92.0-98.5); BG OXYHEMOGLOBIN 98.6 % (94.0-97.0); BG PCO2 41.2 mmHg (35.0-45.0); BG PH 7.399 (7.350-7.450); BG PO2 245.2 mmHg (75.0-100.0); BG SAMPLE SITE RIGHT RADIAL; BG TOTAL HEMOGLOBIN 13.6 g/dL (12.0-18.0); BG VENT MODE MASK - BIPAP
[2021-08-19] MEDS ORDERED: CLONIDINE 0.1MG TABLET PO PRN (14:00)
[2021-08-19] MEDS ORDERED: ACETAMINOPHEN 325MG TABLET PO PRN ×2 (14:00)
[2021-08-19] MEDS ORDERED: ONDANSETRON HCL 4MG/2ML INJ IV PRN (14:00)
[2021-08-19] MEDS ORDERED: LORAZEPAM 0.5MG TABLET PO PRN (14:00)
[2021-08-19] MEDS ORDERED: IPRATROPIUM/ALBUTEROL 0.5-3(2.5)MG/3ML NEB HHN PRN (14:00)
[2021-08-19] MEDS ORDERED: HYDROCODONE/ACETAMINOPHEN 5/325MG TABLET PO PRN (14:00)
[2021-08-19] MEDS ORDERED: NALOXONE HCL 0.4MG/ML VIAL IV PRN (14:15)
[2021-08-19 14:40] LABS: PHOSPHORUS 3.3 mg/dL (2.5-4.9)
[2021-08-19] MEDS ORDERED: DEXTROSE 50% WATER 50ML SYRINGE IV PRN (16:00)
[2021-08-19] MEDS: ATORVASTATIN CALCIUM 20MG TABLET PO SCH (16:54)
[2021-08-19] MEDS: AMIODARONE HCL 200 MG TABLET PO SCH (16:54)
[2021-08-19] MEDS: FUROSEMIDE 40MG/4ML VIAL IVP SCH (16:55)
[2021-08-19] MEDS: BLOOD SUGAR DIAGNOSTIC STRIP TEST SCH ×2 (16:55→21:40)
[2021-08-19] MEDS ORDERED: CARVEDILOL 12.5MG TABLET PO SCH (17:00)
[2021-08-19] MEDS: INSULIN LISPRO 100 UNITS/ML SUBCUT SCH ×2 (17:26→21:00)
[2021-08-19] MEDS: LEVETIRACETAM 500MG TABLET PO SCH (21:40)
[2021-08-19] MEDS: AMLODIPINE 2.5MG TABLET GT SCH (21:43)
[2021-08-20] VITALS (15 sets, daily range): BP systolic 42–147; BP diastolic 20–115
[2021-08-20 05:42] LABS: CHLORIDE 109 mEq/L (98-107)
[2021-08-20 06:30] LABS: BASOPHILS % 0.3 % (0.0-2.0); EOSINOPHILS % 1.9 % (0.0-5.0); HEMATOCRIT. 46.8 % (42.0-52.0); HEMOGLOBIN. 15.2 g/dL (14.0-18.0); LYMPHOCYTES % 38.6 % (20.0-50.0); MEAN CORPUSCULAR HEMOGLOBIN 27.3 pg (28.0-32.0); MEAN CORPUSCULAR VOLUME 84.2 fL (80.0-94.0); MEAN PLATELET VOLUME 12.7 fl (7.4-10.4); MONOCYTES % 10.5 % (2.0-8.0); NEUTROPHILS % 48.7 % (40.0-76.0); PLATELET 128 x1000/uL (130-400); RED BLOOD CELL COUNT 5.56 mill/uL (4.7-6.1); RED CELL DISTRIBUTION WIDTH 15.2 % (11.6-14.6)
[2021-08-20] MEDS: INSULIN LISPRO 100 UNITS/ML SUBCUT SCH ×4 (07:38→21:00)
[2021-08-20] MEDS: BLOOD SUGAR DIAGNOSTIC STRIP TEST SCH ×4 (07:38→21:15)
[2021-08-20] MEDS: CARVEDILOL 6.25 MG TABLET GT SCH ×2 (08:47→21:15)
[2021-08-20] MEDS: FUROSEMIDE 40MG/4ML VIAL IVP SCH ×2 (08:47→17:24)
[2021-08-20] MEDS: LEVETIRACETAM 500MG TABLET PO SCH ×2 (08:47→21:15)
[2021-08-20] MEDS: ATORVASTATIN CALCIUM 20MG TABLET PO SCH (08:47)
[2021-08-20] MEDS: AMIODARONE HCL 200 MG TABLET PO SCH (08:48)
[2021-08-20] MEDS: AMLODIPINE 2.5MG TABLET GT SCH ×2 (08:48→21:15)
[2021-08-20] MEDS ORDERED: LIDOCAINE HCL 1% 10 MG/ML 10ML VIAL ONE (09:41)
[2021-08-21] VITALS (12 sets, daily range): BP systolic 97–158; BP diastolic 51–101
[2021-08-21 06:18] LABS: BASOPHILS % 0.3 % (0.0-2.0); EOSINOPHILS % 1.3 % (0.0-5.0); HEMATOCRIT. 44.7 % (42.0-52.0); HEMOGLOBIN. 14.3 g/dL (14.0-18.0); LYMPHOCYTES % 33.5 % (20.0-50.0); MEAN CORPUSCULAR HEMOGLOBIN 27.1 pg (28.0-32.0); MEAN PLATELET VOLUME 11.4 fl (7.4-10.4); MONOCYTES % 13.3 % (2.0-8.0); NEUTROPHILS % 51.6 % (40.0-76.0); PLATELET 108 x1000/uL (130-400); RED BLOOD CELL COUNT 5.26 mill/uL (4.7-6.1); RED CELL DISTRIBUTION WIDTH 14.9 % (11.6-14.6)
[2021-08-21 06:37] LABS: CHLORIDE 109 mEq/L (98-107)
[2021-08-21] MEDS: INSULIN LISPRO 100 UNITS/ML SUBCUT SCH ×4 (07:44→21:00)
[2021-08-21] MEDS: BLOOD SUGAR DIAGNOSTIC STRIP TEST SCH ×4 (07:44→21:12)
[2021-08-21] MEDS: ATORVASTATIN CALCIUM 20MG TABLET PO SCH (09:39)
[2021-08-21] MEDS: FUROSEMIDE 40MG/4ML VIAL IVP SCH ×2 (09:39→17:26)
[2021-08-21] MEDS: AMIODARONE HCL 200 MG TABLET PO SCH (09:39)
[2021-08-21] MEDS: LEVETIRACETAM 500MG TABLET PO SCH ×2 (09:39→20:36)
[2021-08-21] MEDS: AMLODIPINE 2.5MG TABLET GT SCH ×2 (09:39→20:36)
[2021-08-21] MEDS: CARVEDILOL 6.25 MG TABLET GT SCH ×2 (09:39→20:36)
[2021-08-22] VITALS (11 sets, daily range): BP systolic 97–153; BP diastolic 38–81
[2021-08-22 05:58] LABS: CHLORIDE 109 mEq/L (98-107)
[2021-08-22] MEDS: BLOOD SUGAR DIAGNOSTIC STRIP TEST SCH ×4 (07:30→21:35)
[2021-08-22] MEDS: INSULIN LISPRO 100 UNITS/ML SUBCUT SCH ×4 (08:00→21:00)
[2021-08-22 09:38] LABS: BASOPHILS % 0.3 % (0.0-2.0); EOSINOPHILS % 1.9 % (0.0-5.0); HEMATOCRIT. 40.9 % (42.0-52.0); LYMPHOCYTES % 34.3 % (20.0-50.0); MEAN CORPUSCULAR HEMOGLOBIN 26.6 pg (28.0-32.0); MEAN PLATELET VOLUME 11.4 fl (7.4-10.4); MONOCYTES % 11.2 % (2.0-8.0); NEUTROPHILS % 52.3 % (40.0-76.0); PLATELET 110 x1000/uL (130-400); RED BLOOD CELL COUNT 4.87 mill/uL (4.7-6.1); RED CELL DISTRIBUTION WIDTH 14.9 % (11.6-14.6)
[2021-08-22] MEDS ORDERED: AMLO2.5T45 GT (10:39)
[2021-08-22] MEDS ORDERED: COR6 GT (10:39)
[2021-08-22] MEDS: AMIODARONE HCL 200 MG TABLET PO SCH (10:41)
[2021-08-22] MEDS: FUROSEMIDE 40MG/4ML VIAL IVP SCH (10:41)
[2021-08-22] MEDS: ATORVASTATIN CALCIUM 20MG TABLET PO SCH (10:41)
[2021-08-22] MEDS: LEVETIRACETAM 500MG TABLET PO SCH ×2 (10:41→21:20)
[2021-08-22] MEDS: AMLODIPINE 2.5MG TABLET GT SCH ×2 (10:42→21:20)
[2021-08-22] MEDS: CARVEDILOL 6.25 MG TABLET GT SCH ×2 (10:46→21:21)
[2021-08-22] MEDS ORDERED: VANCOMYCIN 1G PREMIX 200 ML IV NR (12:00)
[2021-08-22] MEDS: CEFEPIME 2,000 MG in DEXT 5% WATER 100 ML IV SCH (12:10)
[2021-08-22] MEDS: VANCOMYCIN 1G PREMIX 200 ML IV SCH (23:13)
[2021-08-23] VITALS (12 sets, daily range): BP systolic 102–134; BP diastolic 51–75
[2021-08-23] MEDS ORDERED: VANCOMYCIN 500MG PREMIX 100 ML IV SCH
[2021-08-23] MEDS: CEFEPIME 2,000 MG in DEXT 5% WATER 100 ML IV SCH ×2 (00:43→11:57)
[2021-08-23] MEDS: FUROSEMIDE 40MG TABLET PO SCH ×3 (05:44→21:09)
[2021-08-23 07:15] LABS: HEMATOCRIT. 41.3 % (42.0-52.0); HEMOGLOBIN. 13.1 g/dL (14.0-18.0); MEAN CORPUSCULAR HEMOGLOBIN 26.8 pg (28.0-32.0); MEAN CORPUSCULAR VOLUME 84.3 fL (80.0-94.0); MEAN PLATELET VOLUME 12.1 fl (7.4-10.4); PLATELET 109 x1000/uL (130-400); RED CELL DISTRIBUTION WIDTH 14.9 % (11.6-14.6)
[2021-08-23] MEDS: BLOOD SUGAR DIAGNOSTIC STRIP TEST SCH ×4 (07:30→20:56)
[2021-08-23 07:48] LABS: CHLORIDE 110 mEq/L (98-107)
[2021-08-23] MEDS: INSULIN LISPRO 100 UNITS/ML SUBCUT SCH ×4 (08:14→20:57)
[2021-08-23] MEDS: ATORVASTATIN CALCIUM 20MG TABLET PO SCH (09:03)
[2021-08-23] MEDS: AMIODARONE HCL 200 MG TABLET PO SCH (09:03)
[2021-08-23] MEDS: LEVETIRACETAM 500MG TABLET PO SCH ×2 (09:04→21:09)
[2021-08-23] MEDS: CARVEDILOL 6.25 MG TABLET GT SCH ×2 (09:04→21:09)
[2021-08-23] MEDS: AMLODIPINE 2.5MG TABLET GT SCH ×2 (09:04→21:09)
[2021-08-23] MEDS ORDERED: POTASSIUM CHLORIDE 20MEQ/PACKET PO NR (13:30)
[2021-08-23 13:51] LABS: PLATELET ESTIMATE DECREASED
[2021-08-23] MEDS: VANCOMYCIN 1G PREMIX 200 ML IV SCH (16:59)
[2021-08-24] VITALS (11 sets, daily range): BP systolic 95–153; BP diastolic 50–79
[2021-08-24] MEDS: CEFEPIME 2,000 MG in DEXT 5% WATER 100 ML IV SCH ×2 (00:03→12:20)
[2021-08-24 06:15] LABS: HEMATOCRIT. 41.3 % (42.0-52.0); HEMOGLOBIN. 13.3 g/dL (14.0-18.0); MEAN CORPUSCULAR HEMOGLOBIN 26.8 pg (28.0-32.0); MEAN CORPUSCULAR VOLUME 83.4 fL (80.0-94.0); MEAN PLATELET VOLUME 11.8 fl (7.4-10.4); PLATELET 99 x1000/uL (130-400); RED BLOOD CELL COUNT 4.95 mill/uL (4.7-6.1); RED CELL DISTRIBUTION WIDTH 15.3 % (11.6-14.6)
[2021-08-24 06:36] LABS: CHLORIDE 111 mEq/L (98-107)
[2021-08-24] MEDS: BLOOD SUGAR DIAGNOSTIC STRIP TEST SCH ×3 (08:00→17:41)
[2021-08-24] MEDS: INSULIN LISPRO 100 UNITS/ML SUBCUT SCH ×3 (08:00→17:41)
[2021-08-24] MEDS: FUROSEMIDE 40MG TABLET PO SCH (08:16)
[2021-08-24] MEDS: LEVETIRACETAM 500MG TABLET PO SCH (08:17)
[2021-08-24] MEDS: AMIODARONE HCL 200 MG TABLET PO SCH (08:17)
[2021-08-24] MEDS: AMLODIPINE 2.5MG TABLET GT SCH (08:18)
[2021-08-24] MEDS: CARVEDILOL 6.25 MG TABLET GT SCH (08:18)
[2021-08-24] MEDS: ATORVASTATIN CALCIUM 20MG TABLET PO SCH (08:18)
[2021-08-24] MEDS ORDERED: POTASSIUM CHLORIDE 20MEQ/PACKET PO SCH ×2 (09:00→17:00)
[2021-08-24 11:18] LABS: PLATELET ESTIMATE DECREASED
[2021-08-24] MEDS ORDERED: LEVO500T90 MT (14:39)
[2021-08-24] MEDS ORDERED: AMOX1TAB16 MT (14:39)
[2021-08-24] MEDS ORDERED: SULF1TAB48 MT (14:39)
[2021-08-24 14:46] LABS: BG BASE EXCESS 8.7 mmol/L (-2.0-2.0); BG CARBOXYHEMOGLOBIN 0.6 % (0.5-1.5); BG DEOXYHEMOGLOBIN 4.4 % (0.0-5.0); BG FRACTION INSPIRED OXYGEN 21; BG HCO3 ACT 33.9 mmol/L (22.0-26.0); BG METHEMOGLOBIN 0.3 % (0.0-1.5); BG OXYGEN SATURATION 95.6 % (92.0-98.5); BG OXYHEMOGLOBIN 94.7 % (94.0-97.0); BG PCO2 48.3 mmHg (35.0-45.0); BG PH 7.464 (7.350-7.450); BG PO2 79.3 mmHg (75.0-100.0); BG SAMPLE SITE LEFT BRACHIAL; BG TOTAL HEMOGLOBIN 14.5 g/dL (12.0-18.0); BG VENT MODE ROOM AIR
[2021-08-24] MEDS ORDERED: VANCOMYCIN 750MG PREMIX 150 ML IV SCH (18:00)
== END 2021-08-24 19:00 | disposition home or self-care (01) | DRG 871 ==
LOC: ER 09:58 → EDBEDREQ 11:48 → ENRESERV 12:09 → 5EST 12:41
PROVIDERS: ADMIT Internal Medicine; ATTEND Internal Medicine
PROC: 5A09357 Assistance with Respiratory Ventilation, Less than 24 Consecutive Hours, Continuous Positive Airway Pressure (ICD-10-PCS; principal; 2021-08-19)
PROC: 05HY33Z Insertion of Infusion Device into Upper Vein, Percutaneous Approach (ICD-10-PCS; 2021-08-20)
DX: A41.9 Sepsis, unspecified organism (principal); I50.43 Acute on chronic combined systolic (congestive) and diastolic (congestive) heart failure; J96.21 Acute and chronic respiratory failure with hypoxia; E87.2 Acidosis; E44.1 Mild protein-calorie malnutrition; Z68.1 Body mass index [BMI] 19.9 or less, adult; N39.0 Urinary tract infection, site not specified; I24.8 Other forms of acute ischemic heart disease; I69.951 Hemiplegia and hemiparesis following unspecified cerebrovascular disease affecting right dominant side; I42.9 Cardiomyopathy, unspecified; I11.0 Hypertensive heart disease with heart failure; E78.00 Pure hypercholesterolemia, unspecified; E78.5 Hyperlipidemia, unspecified; G40.909 Epilepsy, unspecified, not intractable, without status epilepticus; D69.6 Thrombocytopenia, unspecified; R77.8 Other specified abnormalities of plasma proteins; N40.0 Benign prostatic hyperplasia without lower urinary tract symptoms; E11.9 Type 2 diabetes mellitus without complications; I48.0 Paroxysmal atrial fibrillation; I49.1 Atrial premature depolarization; R13.10 Dysphagia, unspecified; Z79.01 Long term (current) use of anticoagulants; Z79.4 Long term (current) use of insulin; Z79.84 Long term (current) use of oral hypoglycemic drugs; Z91.040 Latex allergy status; Z79.899 Other long term (current) drug therapy; Z93.1 Gastrostomy status; B96.5 Pseudomonas (aeruginosa) (mallei) (pseudomallei) as the cause of diseases classified elsewhere; B95.62 Methicillin resistant Staphylococcus aureus infection as the cause of diseases classified elsewhere; B95.2 Enterococcus as the cause of diseases classified elsewhere; I65.21 Occlusion and stenosis of right carotid artery
CPT/HCPCS: 36415; 36573; 36600; 71045; 80048; 80053; 80202; 82375; 82805; 82962; 83036; 83605; 83735; 83880; 84100; 84145; 84484; 85025; 87077; 87186; 93005; 93306; 94640; 94660; 99291; C1725; J0692; J1940; J3370; J3490; J7060

== ENCOUNTER 2021-11-03 09:27 | Inpatient (IN) | payer MEDICARE, MEDICAID ==
[~2021-11-03] VITALS: Ht 165.1 cm; Wt 67.6 kg
[~2021-11-03 09:27] MED LIST changes: +AMLO2.5T45 GT; +COR6 GT; +LEVO500T90 MT; -LEVO750T46 MT
[2021-11-03] MEDS ORDERED: METHYLPREDNISOLONE SOD SUCC 125 MG/2 ML VIAL IV ONE (10:00)
[2021-11-03] MEDS ORDERED: IPRATROPIUM/ALBUTEROL 0.5-3(2.5)MG/3ML NEB HHN ONE (10:00)
[2021-11-03 10:12] LABS: BG BASE EXCESS -0.1 mmol/L (-2.0-2.0); BG CARBOXYHEMOGLOBIN 0.3 % (0.5-1.5); BG DEOXYHEMOGLOBIN 2.1 % (0.0-5.0); BG HCO3 ACT 24.6 mmol/L (22.0-26.0); BG METHEMOGLOBIN 0.2 % (0.0-1.5); BG OXYGEN SATURATION 97.9 % (92.0-98.5); BG OXYHEMOGLOBIN 97.4 % (94.0-97.0); BG PCO2 40.3 mmHg (35.0-45.0); BG PH 7.404 (7.350-7.450); BG PO2 108.6 mmHg (75.0-100.0); BG SAMPLE SITE RIGHT RADIAL; BG TOTAL HEMOGLOBIN 13.4 g/dL (12.0-18.0); BG VENT MODE MASK - BIPAP
[2021-11-03 10:16] LABS: BASOPHILS % 0.4 % (0.0-2.0); EOSINOPHILS % 2.1 % (0.0-5.0); HEMATOCRIT. 41.3 % (42.0-52.0); HEMOGLOBIN. 13.2 g/dL (14.0-18.0); LYMPHOCYTES % 33.9 % (20.0-50.0); MEAN CORPUSCULAR HEMOGLOBIN 27.2 pg (28.0-32.0); MEAN CORPUSCULAR VOLUME 85.1 fL (80.0-94.0); MEAN PLATELET VOLUME 11.4 fl (7.4-10.4); MONOCYTES % 8.1 % (2.0-8.0); NEUTROPHILS % 55.5 % (40.0-76.0); PLATELET 100 x1000/uL (130-400); RED BLOOD CELL COUNT 4.86 mill/uL (4.7-6.1); RED CELL DISTRIBUTION WIDTH 17.5 % (11.6-14.6)
[2021-11-03 10:21] LABS: CHLORIDE 105 mEq/L (98-107)
[2021-11-03] MEDS ORDERED: ASPIRIN 325MG EC TABLET PO SCH (11:00)
[2021-11-03] MEDS ORDERED: FUROSEMIDE 20MG/2ML VIAL IVP NR (12:15)
[2021-11-03] MEDS ORDERED: AZITHROMYCIN 500 MG TABLET PO SCH (15:30)
[2021-11-03] MEDS ORDERED: ALBUTEROL (0.083%) 2.5MG/3ML NEB HHN NR (15:30)
[2021-11-03] MEDS ORDERED: CEFTRIAXONE 1 G PREMIX 50 ML IV SCH (15:45)
[2021-11-03 16:32] VITALS: BP 126/67
[2021-11-03 16:54] VITALS: BP 126/67
[2021-11-03] MEDS ORDERED: CEFTRIAXONE 1,000 MG in DEXTROSE 5% WATER 50 ML IV SCH (17:00)
[2021-11-03] MEDS: METHYLPREDNISOLONE SOD SUCC 40 MG/ML VIAL IV SCH ×2 (17:59→22:03)
[2021-11-03 18:00] VITALS: BP 140/76
[2021-11-03] MEDS: ENOXAPARIN 40MG/0.4ML SYR SUBCUT SCH (18:00)
[2021-11-03 20:00] VITALS: BP 135/73
[2021-11-03 22:00] VITALS: BP 135/73
[2021-11-03] MEDS: CEFTRIAXONE 1,000 MG in DEXTROSE 5% WATER 50 ML IV SCH (22:03)
[2021-11-04] VITALS (12 sets, daily range): BP systolic 80–151; BP diastolic 44–86
[2021-11-04 05:56] LABS: CHLORIDE 103 mEq/L (98-107)
[2021-11-04] MEDS: METHYLPREDNISOLONE SOD SUCC 40 MG/ML VIAL IV SCH ×3 (05:58→21:02)
[2021-11-04 06:21] LABS: EOSINOPHILS % 0.1 % (0.0-5.0); HEMATOCRIT. 39.4 % (42.0-52.0); HEMOGLOBIN. 12.8 g/dL (14.0-18.0); LYMPHOCYTES % 17.6 % (20.0-50.0); MEAN CORPUSCULAR HEMOGLOBIN 27.4 pg (28.0-32.0); MEAN CORPUSCULAR VOLUME 84.8 fL (80.0-94.0); MEAN PLATELET VOLUME 12.1 fl (7.4-10.4); MONOCYTES % 1.4 % (2.0-8.0); NEUTROPHILS % 80.9 % (40.0-76.0); PLATELET 93 x1000/uL (130-400); RED BLOOD CELL COUNT 4.65 mill/uL (4.7-6.1); RED CELL DISTRIBUTION WIDTH 17.1 % (11.6-14.6)
[2021-11-04] MEDS: FUROSEMIDE 40MG/4ML VIAL IVP SCH (08:56)
[2021-11-04] MEDS: AMLODIPINE 5MG TABLET GT SCH (08:57)
[2021-11-04] MEDS: AZITHROMYCIN 250 MG TABLET PO SCH (08:57)
[2021-11-04] MEDS ORDERED: LIDOCAINE HCL 1% 30ML VIAL (10MG/ML) ONE (10:46)
[2021-11-04] MEDS ORDERED: CEFTRIAXONE 1,000 MG in DEXTROSE 5% WATER 50 ML IV SCH (15:00)
[2021-11-04] MEDS: ENOXAPARIN 40MG/0.4ML SYR SUBCUT SCH (16:27)
[2021-11-04] MEDS: CEFTRIAXONE 1,000 MG in DEXTROSE 5% WATER 50 ML IV SCH (20:53)
[2021-11-05] VITALS (15 sets, daily range): BP systolic 92–133; BP diastolic 48–77
[2021-11-05] MEDS: METHYLPREDNISOLONE SOD SUCC 40 MG/ML VIAL IV SCH ×2 (05:57→14:00)
[2021-11-05 06:33] LABS: BASOPHILS % 0.1 % (0.0-2.0); HEMATOCRIT. 41.6 % (42.0-52.0); HEMOGLOBIN. 13.4 g/dL (14.0-18.0); LYMPHOCYTES % 7.7 % (20.0-50.0); MEAN CORPUSCULAR HEMOGLOBIN 27.3 pg (28.0-32.0); MEAN CORPUSCULAR VOLUME 84.9 fL (80.0-94.0); MONOCYTES % 3.4 % (2.0-8.0); NEUTROPHILS % 88.8 % (40.0-76.0); RED CELL DISTRIBUTION WIDTH 17.5 % (11.6-14.6)
[2021-11-05 06:35] LABS: CHLORIDE 103 mEq/L (98-107)
[2021-11-05 07:44] LABS: MEAN PLATELET VOLUME 12.2 fl (7.4-10.4)
[2021-11-05 07:45] LABS: PLATELET 122 x1000/uL (130-400)
[2021-11-05] MEDS: FUROSEMIDE 40MG/4ML VIAL IVP SCH (09:32)
[2021-11-05] MEDS: AMLODIPINE 5MG TABLET GT SCH (09:33)
[2021-11-05] MEDS: AZITHROMYCIN 250 MG TABLET PO SCH (09:33)
[2021-11-05] MEDS: ENOXAPARIN 40MG/0.4ML SYR SUBCUT SCH (17:00)
[2021-11-05] MEDS ORDERED: IPRATROPIUM/ALBUTEROL 0.5-3(2.5)MG/3ML NEB HHN PRN (17:30)
[2021-11-05] MEDS: CEFTRIAXONE 1,000 MG in DEXTROSE 5% WATER 50 ML IV SCH (20:00)
[2021-11-05] MEDS: IPRATROPIUM/ALBUTEROL 0.5-3(2.5)MG/3ML NEB HHN SCH (20:43)
[2021-11-05] MEDS ORDERED: VANCOMYCIN 1.25GM PMX (XELLIA) 250 ML IV NR (22:00)
[2021-11-06] VITALS (14 sets, daily range): BP systolic 95–133; BP diastolic 56–82
[2021-11-06] MEDS: IPRATROPIUM/ALBUTEROL 0.5-3(2.5)MG/3ML NEB HHN SCH ×4 (02:09→20:11)
[2021-11-06] MEDS: FUROSEMIDE 40MG/4ML VIAL IVP SCH (08:41)
[2021-11-06] MEDS: AZITHROMYCIN 250 MG TABLET PO SCH (08:42)
[2021-11-06] MEDS: AMLODIPINE 5MG TABLET GT SCH (08:42)
[2021-11-06] MEDS ORDERED: FURO20TA4 PO (10:40)
[2021-11-06] MEDS ORDERED: AMOX1TAB16 MT (10:40)
[2021-11-06] MEDS ORDERED: VANCOMYCIN 750MG PREMIX 150 ML IV SCH (12:00)
[2021-11-06] MEDS ORDERED: VANCOMYCIN 750MG PMX (XELLIA) 150 ML IV SCH (12:00)
[2021-11-06] MEDS ORDERED: VANCOMYCIN 1GM PMX (XELLIA) 200 ML IV SCH (14:00)
[2021-11-06] MEDS: ENOXAPARIN 40MG/0.4ML SYR SUBCUT SCH (17:00)
[2021-11-07] MEDS ORDERED: SULF1TAB48 MT (12:34)
== END 2021-11-06 21:11 | disposition home health service (06) | DRG 871 ==
LOC: ER 09:52 → 5EST 12:18 → EDBEDREQ 12:28 → EDBEDREQTM 12:34 → ENRESERV 14:01 → SUPCPDRO 15:16
PROVIDERS: ADMIT Internal Medicine; ATTEND Internal Medicine
PROC: 5A09357 Assistance with Respiratory Ventilation, Less than 24 Consecutive Hours, Continuous Positive Airway Pressure (ICD-10-PCS; principal; 2021-11-03)
PROC: 02HV33Z Insertion of Infusion Device into Superior Vena Cava, Percutaneous Approach (ICD-10-PCS; 2021-11-04)
PROC: B548ZZA Ultrasonography of Superior Vena Cava, Guidance (ICD-10-PCS; 2021-11-04)
DX: A41.01 Sepsis due to Methicillin susceptible Staphylococcus aureus (principal); E43 Unspecified severe protein-calorie malnutrition; G93.41 Metabolic encephalopathy; J96.01 Acute respiratory failure with hypoxia; I50.43 Acute on chronic combined systolic (congestive) and diastolic (congestive) heart failure; J69.0 Pneumonitis due to inhalation of food and vomit; D61.818 Other pancytopenia; N39.0 Urinary tract infection, site not specified; G81.91 Hemiplegia, unspecified affecting right dominant side; I11.0 Hypertensive heart disease with heart failure; I49.3 Ventricular premature depolarization; Z20.822 Contact with and (suspected) exposure to COVID-19; E11.9 Type 2 diabetes mellitus without complications; G40.909 Epilepsy, unspecified, not intractable, without status epilepticus; I48.0 Paroxysmal atrial fibrillation; E78.5 Hyperlipidemia, unspecified; R13.10 Dysphagia, unspecified; Z79.4 Long term (current) use of insulin; Z93.1 Gastrostomy status; Z91.040 Latex allergy status; Z86.19 Personal history of other infectious and parasitic diseases; I69.320 Aphasia following cerebral infarction; I25.2 Old myocardial infarction
CPT/HCPCS: 36415; 36573; 36600; 71045; 80048; 80053; 82375; 82805; 83735; 83880; 84145; 84484; 85025; 87077; 87186; 87426; 93005; 93306; 94640; 94660; 97162; 99285; C1725; C9803; J0696; J1650; J1940; J2920; J2930; J3370; J3490; J7060

== ENCOUNTER 2022-04-28 23:32 | Inpatient (IN) | payer MEDICARE, MEDICAID ==
[~2022-04-28] VITALS: Ht 167.6 cm; Wt 97.5 kg
[~2022-04-28 23:32] MED LIST changes: -COR6 GT; -LEVO500T90 MT; -SENN8.6T71 PO
[2022-04-29 00:48] LABS: BASOPHILS % 0.1 % (0.0-2.0); CHLORIDE 109 mEq/L (98-107); EOSINOPHILS % 0.2 % (0.0-5.0); HEMATOCRIT. 44.8 % (42.0-52.0); LYMPHOCYTES % 20.1 % (20.0-50.0); MEAN CORPUSCULAR HEMOGLOBIN 26.9 pg (28.0-32.0); MEAN CORPUSCULAR VOLUME 85.9 fL (80.0-94.0); MEAN PLATELET VOLUME 12.2 fl (7.4-10.4); MONOCYTES % 10.6 % (2.0-8.0); PLATELET 122 x1000/uL (130-400); RED BLOOD CELL COUNT 5.21 mill/uL (4.7-6.1); RED CELL DISTRIBUTION WIDTH 17.5 % (11.6-14.6)
[2022-04-29 00:59] LABS: ETHANOL BLOOD < 10 mg/dL
[2022-04-29] MEDS ORDERED: SODIUM CHLORIDE 0.9% 500 ML IV ONE (01:30)
[2022-04-29 01:46] LABS: CLARITY URINE CLOUDY (CLEAR); COLOR URINE YELLOW (YELLOW); KETONES URINE NEGATIVE (NEGATIVE); LEUKOCYTE ESTERASE URINE 2+ (NEGATIVE); NITRITE URINE POSITIVE (NEGATIVE); OCCULT BLOOD URINE 1+ (NEGATIVE); PH URINE 5.5 (4.5-8.0); PROTEIN URINE TRACE (NEGATIVE); SPECIFIC GRAVITY URINE 1.015 (1.005-1.030); UROBILINOGEN URINE 0.2 E.U./dL (0.2-1.0)
[2022-04-29] MEDS ORDERED: CEFTRIAXONE 1 G PREMIX 50 ML IV NR (02:00)
[2022-04-29 02:19] LABS: *AMPHETAMINES SCREEN URINE NEGATIVE (NEGATIVE); *BARBITURATES SCREEN URINE NEGATIVE (NEGATIVE); *BENZODIAZEPINES SCREEN URINE NEGATIVE (NEGATIVE); *COCAINE SCREEN URINE NEGATIVE (NEGATIVE); CANNABINOID URINE SCREEN NEGATIVE (NEGATIVE); METHADONE URINE SCREEN NEGATIVE (NEGATIVE); OPIATES URINE SCREEN NEGATIVE (NEGATIVE); PHENCYCLIDINE URINE SCREEN NEGATIVE (NEGATIVE)
[2022-04-29] MEDS: SODIUM CHLORIDE 0.9% 1,000 ML IV SCH ×2 (03:22→20:42)
[2022-04-29] MEDS ORDERED: IPRATROPIUM/ALBUTEROL 0.5-3(2.5)MG/3ML NEB NEB SCH (03:30)
[2022-04-29] MEDS ORDERED: CEFTRIAXONE 1 G PREMIX 50 ML IV SCH (03:30)
[2022-04-29] MEDS ORDERED: IPRATROPIUM/ALBUTEROL 0.5-3(2.5)MG/3ML NEB NEB PRN (03:30)
[2022-04-29] MEDS ORDERED: ACETAMINOPHEN 650MG/20.3ML UDC GT PRN ×2 (03:30)
[2022-04-29 04:56] LABS: BASOPHILS % 0.2 % (0.0-2.0); EOSINOPHILS % 0.6 % (0.0-5.0); HEMATOCRIT. 40.7 % (42.0-52.0); HEMOGLOBIN. 12.8 g/dL (14.0-18.0); LYMPHOCYTES % 25.3 % (20.0-50.0); MEAN CORPUSCULAR HEMOGLOBIN 26.6 pg (28.0-32.0); MEAN CORPUSCULAR VOLUME 84.6 fL (80.0-94.0); MEAN PLATELET VOLUME 12.3 fl (7.4-10.4); NEUTROPHILS % 63.9 % (40.0-76.0); PLATELET 97 x1000/uL (130-400); RED BLOOD CELL COUNT 4.81 mill/uL (4.7-6.1); RED CELL DISTRIBUTION WIDTH 17.6 % (11.6-14.6)
[2022-04-29 05:24] LABS: CREATINE KINASE MB FRACTION 2.1 ng/mL (0.5-3.6)
[2022-04-29 05:52] LABS: D-DIMER 0.72 mg/L FEU (<0.50); INR 1.2; PHOSPHORUS 1.9 mg/dL (2.5-4.9); PROTHROMBIN TIME 13.2 sec (9.6-11.0)
[2022-04-29 05:53] LABS: TOTAL IRON BINDING CAPACITY 328 ug/dL (250-450)
[2022-04-29 06:27] LABS: FOLIC ACID (FOLATE) SERUM >20 ng/mL ng/mL (>5.38)
[2022-04-29 07:47] LABS: VITAMIN B12 SERUM 1374 pg/mL (211-911)
[2022-04-29] MEDS: LEVOTHYROXINE SODIUM 88MCG TABLET GT SCH (08:42)
[2022-04-29] MEDS ORDERED: CEFTRIAXONE 1,000 MG in DEXTROSE 5% WATER 50 ML IV SCH (09:00)
[2022-04-29 09:17] LABS: BG BASE EXCESS 0.1 mmol/L (-2.0-2.0); BG FRACTION INSPIRED OXYGEN 36; BG HCO3 ACT 23.4 mmol/L (22.0-26.0); BG METHEMOGLOBIN 0.3 % (0.0-1.5); BG OXYHEMOGLOBIN 98.7 % (94.0-97.0); BG PCO2 33.6 mmHg (35.0-45.0); BG PH 7.461 (7.350-7.450); BG PO2 153.9 mmHg (75.0-100.0); BG SAMPLE SITE LEFT RADIAL; BG TOTAL HEMOGLOBIN 12.3 g/dL (12.0-18.0); BG VENT MODE NASAL CANNULA
[2022-04-29] MEDS ORDERED: ALBUTEROL (0.083%) 2.5MG/3ML NEB HHN PRN (10:15)
[2022-04-29] MEDS ORDERED: IPRATROPIUM BROMIDE (0.02%) 0.5MG/2.5ML NEB HHN PRN (10:15)
[2022-04-29] MEDS: LEVETIRACETAM 500MG/5ML CUP GT SCH ×2 (10:26→20:41)
[2022-04-29] MEDS: FUROSEMIDE 40MG/4ML VIAL IV SCH (10:26)
[2022-04-29] MEDS: AMIODARONE HCL 200 MG TABLET GT SCH (10:27)
[2022-04-29 12:00] VITALS: BP 120/58
[2022-04-29] MEDS: ALBUTEROL (0.083%) 2.5MG/3ML NEB HHN SCH ×2 (12:38→20:37)
[2022-04-29] MEDS: IPRATROPIUM BROMIDE (0.02%) 0.5MG/2.5ML NEB HHN SCH ×2 (12:38→20:36)
[2022-04-29] MEDS: FAMOTIDINE 20MG/2ML VIAL IV SCH (12:47)
[2022-04-29 13:54] VITALS: BP 120/58
[2022-04-29 14:17] LABS: CHLORIDE 113 mEq/L (98-107)
[2022-04-29 14:29] LABS: HDL CHOLESTEROL 68 mg/dL (40-59); LDL CHOLESTEROL 81 mg/dL (5-100); T4 FREE 2.12 ng/dL (0.76-1.46)
[2022-04-29 16:00] VITALS: BP 105/65
[2022-04-29] MEDS: RIVAROXABAN 20 MG TABLET GT SCH (17:38)
[2022-04-29 18:24] LABS: CREATINE KINASE MB FRACTION 2.2 ng/mL (0.5-3.6)
[2022-04-29 20:00] VITALS: BP 102/58
[2022-04-29] MEDS: SENNOSIDES/DOCUSATE SOD 8.6/50MG TABLET GT SCH (20:41)
[2022-04-29] MEDS: ATORVASTATIN CALCIUM 20MG TABLET GT SCH (20:41)
[2022-04-29] MEDS: CEFTRIAXONE 1,000 MG in DEXTROSE 5% WATER 50 ML IV SCH (20:42)
[2022-04-30] VITALS: BP 97/57
[2022-04-30 00:25] LABS: CREATINE KINASE MB FRACTION 2.9 ng/mL (0.5-3.6)
[2022-04-30] MEDS: ALBUTEROL (0.083%) 2.5MG/3ML NEB HHN SCH ×4 (01:20→21:54)
[2022-04-30] MEDS: IPRATROPIUM BROMIDE (0.02%) 0.5MG/2.5ML NEB HHN SCH ×4 (01:20→21:53)
[2022-04-30 04:00] VITALS: BP 99/57
[2022-04-30 07:10] LABS: BASOPHILS % 0.4 % (0.0-2.0); EOSINOPHILS % 5.1 % (0.0-5.0); HEMATOCRIT. 39.8 % (42.0-52.0); HEMOGLOBIN. 12.6 g/dL (14.0-18.0); LYMPHOCYTES % 33.3 % (20.0-50.0); MEAN CORPUSCULAR HEMOGLOBIN 26.8 pg (28.0-32.0); MEAN CORPUSCULAR VOLUME 84.6 fL (80.0-94.0); MEAN PLATELET VOLUME 11.6 fl (7.4-10.4); MONOCYTES % 13.4 % (2.0-8.0); NEUTROPHILS % 47.8 % (40.0-76.0); PLATELET 98 x1000/uL (130-400); RED CELL DISTRIBUTION WIDTH 17.6 % (11.6-14.6)
[2022-04-30 08:00] VITALS: BP 107/58
[2022-04-30 08:22] LABS: CHLORIDE 114 mEq/L (98-107)
[2022-04-30] MEDS: LEVETIRACETAM 500MG/5ML CUP GT SCH ×2 (08:44→20:48)
[2022-04-30] MEDS: LEVOTHYROXINE SODIUM 88MCG TABLET GT SCH (08:44)
[2022-04-30] MEDS: AMIODARONE HCL 200 MG TABLET GT SCH (08:44)
[2022-04-30] MEDS: FUROSEMIDE 40MG/4ML VIAL IV SCH ×2 (08:45→09:00)
[2022-04-30] MEDS: FAMOTIDINE 20MG/2ML VIAL IV SCH ×2 (08:45→09:00)
[2022-04-30 08:53] LABS: CREATINE KINASE 99 IU/L (39-308); CREATINE KINASE MB FRACTION 2.4 ng/mL (0.5-3.6); PHOSPHORUS 3.4 mg/dL (2.5-4.9)
[2022-04-30] MEDS: SPIRONOLACTONE 25MG TABLET PO SCH (08:57)
[2022-04-30 12:00] VITALS: BP_SYST 90; BP_SYST 98; BP_DIAS 44; BP_DIAS 47
[2022-04-30] MEDS: SODIUM CHLORIDE 0.9% 1,000 ML IV SCH (12:50)
[2022-04-30 16:00] VITALS: BP 90/47
[2022-04-30] MEDS: RIVAROXABAN 20 MG TABLET GT SCH (18:15)
[2022-04-30] MEDS ORDERED: FUROSEMIDE 40MG TABLET PO SCH (19:00)
[2022-04-30 20:00] VITALS: BP 101/47
[2022-04-30] MEDS: ATORVASTATIN CALCIUM 20MG TABLET GT SCH (20:48)
[2022-04-30] MEDS: SENNOSIDES/DOCUSATE SOD 8.6/50MG TABLET GT SCH (20:48)
[2022-04-30] MEDS: CEFTRIAXONE 1,000 MG in DEXTROSE 5% WATER 50 ML IV SCH (20:49)
[2022-04-30] MEDS ORDERED: FAMOTIDINE 20MG TABLET PO SCH (21:00)
[2022-05-01] VITALS: BP 98/43
[2022-05-01] MEDS: IPRATROPIUM BROMIDE (0.02%) 0.5MG/2.5ML NEB HHN SCH ×3 (02:00→14:48)
[2022-05-01] MEDS: ALBUTEROL (0.083%) 2.5MG/3ML NEB HHN SCH ×3 (02:00→14:48)
[2022-05-01 04:00] VITALS: BP 96/52
[2022-05-01] MEDS: SODIUM CHLORIDE 0.9% 1,000 ML IV SCH (05:30)
[2022-05-01 08:00] VITALS: BP 99/63
[2022-05-01 08:25] LABS: HEMATOCRIT. 38.3 % (42.0-52.0); HEMOGLOBIN. 11.9 g/dL (14.0-18.0); MEAN CORPUSCULAR HEMOGLOBIN 26.5 pg (28.0-32.0); MEAN CORPUSCULAR VOLUME 85.1 fL (80.0-94.0); PLATELET 94 x1000/uL (130-400); RED CELL DISTRIBUTION WIDTH 17.4 % (11.6-14.6)
[2022-05-01 08:57] LABS: CHLORIDE 107 mEq/L (98-107)
[2022-05-01] MEDS: SPIRONOLACTONE 25MG TABLET PO SCH (09:00)
[2022-05-01] MEDS: AMIODARONE HCL 200 MG TABLET GT SCH (09:46)
[2022-05-01] MEDS: LEVOTHYROXINE SODIUM 88MCG TABLET GT SCH (09:47)
[2022-05-01] MEDS: LEVETIRACETAM 500MG/5ML CUP GT SCH (09:48)
[2022-05-01 12:00] VITALS: BP 92/45
[2022-05-01] MEDS ORDERED: SENN1TAB35 GT (13:10)
[2022-05-01] MEDS ORDERED: NITR-87 GT (13:10)
[2022-05-01] MEDS ORDERED: LEVO88TA7 GT (13:10)
[2022-05-01] MEDS ORDERED: SPIR25TA PO (13:10)
[2022-05-01 14:11] LABS: PLATELET ESTIMATE DECREASED
[2022-05-01 16:00] VITALS: BP 97/41
[2022-05-01] MEDS ORDERED: SULFAMETHOXAZOLE/TRIMETHOPRIM 800/160MG TABLET GT SCH (17:30)
[2022-05-01] MEDS ORDERED: MIDODRINE HCL 5MG TABLET PO SCH (17:30)
[2022-05-01] MEDS: RIVAROXABAN 20 MG TABLET GT SCH (17:40)
[2022-05-01] MEDS ORDERED: MIDO5TAB4 PO (18:12)
== END 2022-05-01 18:33 | disposition hospice, home (50) | DRG 291 ==
LOC: ER 23:32 → MICUSO 04-29 01:46 → EDBEDREQTM 04-29 02:03 → EDBEDREQ 04-29 02:03 → SUPCPDRO 04-29 07:49 → 6EST 04-29 09:57
PROVIDERS: ADMIT Internal Medicine; ATTEND Internal Medicine
DX: I13.0 Hypertensive heart and chronic kidney disease with heart failure and stage 1 through stage 4 chronic kidney disease, or unspecified chronic kidney disease (principal); I50.41 Acute combined systolic (congestive) and diastolic (congestive) heart failure; J96.01 Acute respiratory failure with hypoxia; N17.9 Acute kidney failure, unspecified; D64.9 Anemia, unspecified; D69.6 Thrombocytopenia, unspecified; I49.3 Ventricular premature depolarization; E03.9 Hypothyroidism, unspecified; E78.00 Pure hypercholesterolemia, unspecified; Z20.822 Contact with and (suspected) exposure to COVID-19; N18.9 Chronic kidney disease, unspecified; G93.89 Other specified disorders of brain; I48.0 Paroxysmal atrial fibrillation; Z74.01 Bed confinement status; Z93.1 Gastrostomy status; Z88.8 Allergy status to other drugs, medicaments and biological substances; Z79.899 Other long term (current) drug therapy; Z51.5 Encounter for palliative care
CPT/HCPCS: 36415; 36600; 71045; 76770; 80048; 80053; 80061; 80305; 80320; 81003; 82375; 82550; 82553; 82570; 82607; 82728; 82746; 82805; 82962; 83540; 83550; 83605; 83735; 83880; 84100; 84145; 84300; 84439; 84443; 84484; 85025; 85379; 86850; 86900; 87426; 87804; 93005; 93306; 93970; 94640; 99285; C9803; J0696; J1940; J3490; J7040; J7060; G0480

== ENCOUNTER 2023-03-26 18:27 | Inpatient (IN) | payer MEDICARE, MEDICAID ==
[~2023-03-26] VITALS: Ht 175.3 cm; Wt 61.2 kg
[~2023-03-26 18:27] MED LIST changes: +AMI2 GT; -AMIO100T4 PO; -AMLO2.5T45 GT; -AMOX1TAB16 MT; +ASCO500T20 PO; +ATOR20TA PO; -ATOR20TA65 MT; -BENA5TAB40 MT; +BRIN15DR4 EACHEYE; -CARV12.545 MT; +CHOL2000 GT; -DOCU-138 MT; +EMPA10TA GT; -FURO20TA4 PO; +IPRA3AMP31 NEB; +LATA2.5D14 EACHEYE; +LEVO75TA7 PO; -METH1TAB33 PO; +METO25TA6 GT; +PRED5DRO22 EACHEYE; +RIVA20TA GT; -RIVA20TA PO; +SENN-257 GT; -SULF1TAB48 MT; +TORS20TA4 PO
[2023-03-26 21:01] LABS: BASOPHILS % 0.2 % (0.0-2.0); DIFFERENTIAL COMMENT 0; EOSINOPHILS % 0.9 % (0.0-5.0); HEMATOCRIT. 45.4 % (42.0-52.0); HEMOGLOBIN. 14.1 g/dL (14.0-18.0); LYMPHOCYTES % 24.4 % (20.0-50.0); MEAN CORPUSCULAR HEMOGLOBIN 26.6 pg (28.0-32.0); MEAN CORPUSCULAR VOLUME 85.7 fL (80.0-94.0); MEAN PLATELET VOLUME 12.4 fl (7.4-10.4); MONOCYTES % 10.9 % (2.0-8.0); NEUTROPHILS % 63.6 % (40.0-76.0); PLATELET 125 x1000/uL (130-400); RED CELL DISTRIBUTION WIDTH 19.1 % (11.6-14.6)
[2023-03-26 21:11] LABS: INR 1.2; PROTHROMBIN TIME 12.4 sec (9.6-11.0)
[2023-03-26 21:14] LABS: AMMONIA 45 uMol/L (<32)
[2023-03-26 21:19] LABS: LACTIC ACID 5.9 mmol/L (0.4-2.0)
[2023-03-26 21:59] LABS: ALANINE AMINOTRANSFERASE 17 IU/L (10-49); ASPARTATE AMINOTRANSFERASE 30 IU/L (<34); BILIRUBIN TOTAL 0.4 mg/dL (0.1-1.0); CALCIUM 9.3 mg/dL (8.7-10.4); CARBON DIOXIDE 22 mEq/L (21-32); CHLORIDE 113 mEq/L (98-107); CREATININE 1.4 mg/dL (0.6-1.3); GLUCOSE 85 mg/dL (70-105); PROTEIN TOTAL 8.4 g/dL (6.0-8.3); SODIUM 148 mEq/L (136-145); THYROID STIMULATING HORMONE 2.54 uIU/mL (0.55-4.78); UREA NITROGEN BLOOD 29 mg/dL (9-23)
[2023-03-26 22:03] LABS: TROPONIN I HIGH SENSITIVITY 110 ng/L (3.0-53)
[2023-03-27] VITALS (7 sets, daily range): BP systolic 88–152; BP diastolic 50–83; PULSE 65–80; RESP 18; TEMP 97.2–98.7
[2023-03-27] MEDS ORDERED: ACETAMINOPHEN 650MG SUPP PR PRN (00:45)
[2023-03-27] MEDS ORDERED: ONDANSETRON HCL 4MG/2ML INJ IV PRN (00:45)
[2023-03-27] MEDS: ASCORBIC ACID 500 MG TABLET PO SCH (02:56)
[2023-03-27] MEDS: FAMOTIDINE 20MG/2ML VIAL IV SCH (02:56)
[2023-03-27] MEDS: DEXTROSE 5% WATER 1,000 ML IV SCH (02:56)
[2023-03-27] MEDS: AMIODARONE HCL 200 MG TABLET PO SCH (02:58)
[2023-03-27 03:09] LABS: CALCIUM 9.4 mg/dL (8.7-10.4); CARBON DIOXIDE 27 mEq/L (21-32); CHLORIDE 114 mEq/L (98-107); CREATININE 1.4 mg/dL (0.6-1.3); GLUCOSE 85 mg/dL (70-105); POTASSIUM 4.3 mEq/L (3.5-5.1); SODIUM 149 mEq/L (136-145); UREA NITROGEN BLOOD 30 mg/dL (9-23)
[2023-03-27] MEDS ORDERED: IPRATROPIUM/ALBUTEROL 0.5-3(2.5)MG/3ML NEB HHN SCH (06:00)
[2023-03-27] MEDS: LEVOTHYROXINE SODIUM 75MCG TABLET PO SCH (06:18)
[2023-03-27 08:55] LABS: AMMONIA < 17 uMol/L (<32)
[2023-03-27] MEDS ORDERED: LEVETIRACETAM 500 MG PO SCH (09:00)
[2023-03-27] MEDS ORDERED: MEDICATION NOT ON FORMULARY EA (Cholecalciferol (Vitamin D3) (Vitamin D3) 1 CAP) PO SCH (09:00)
[2023-03-27] MEDS: CHOLECALCIFEROL (D3) 1000 UNIT TABLET PO SCH (09:21)
[2023-03-27] MEDS: LEVETIRACETAM 500MG TABLET PO SCH (09:21)
[2023-03-27] MEDS: RIVAROXABAN 20 MG TABLET PO SCH (09:21)
[2023-03-27] MEDS: METOPROLOL TARTRATE 25MG TABLET PO SCH (09:22)
[2023-03-27] MEDS: PREDNISOLONE ACETATE 1% OPHTH DROPS 5ML EACHEYE SCH (10:39)
[2023-03-27] MEDS ORDERED: ASCO500C18 GT (16:45)
[2023-03-27] MEDS ORDERED: ATOR20TA GT (16:59)
[2023-03-27] MEDS ORDERED: LEVO50TA8 GT (16:59)
[2023-03-27] MEDS ORDERED: LEVO25TA2 GT (16:59)
[2023-03-27] MEDS ORDERED: KEPP500 GT (16:59)
[2023-03-27] MEDS ORDERED: TORS10TA17 GT (17:13)
[2023-03-27] MEDS ORDERED: METH1TAB33 GT (17:15)
[2023-03-27 18:26] LABS: CARBON DIOXIDE 22 mEq/L (21-32); CHLORIDE 117 mEq/L (98-107); CREATINE KINASE 231 IU/L (46-171); CREATINE KINASE MB FRACTION 1.4 ng/mL (0.5-3.6); CREATININE 1.2 mg/dL (0.6-1.3); GLUCOSE 107 mg/dL (70-105); POTASSIUM 3.8 mEq/L (3.5-5.1); SODIUM 149 mEq/L (136-145); UREA NITROGEN BLOOD 29 mg/dL (9-23)
[2023-03-27 18:28] LABS: TROPONIN I HIGH SENSITIVITY 98 ng/L (3.0-53)
[2023-03-27 19:13] LABS: SODIUM URINE RANDOM 35 mEq/L
[2023-03-27 19:32] LABS: OSMOLALITY URINE 674 mOsm/kg (500-850)
[2023-03-27] MEDS: LATANOPROST 0.005% OPHTH DROPS 2.5ML EACHEYE SCH (21:27)
[2023-03-27] MEDS: ATORVASTATIN CALCIUM 20MG TABLET PO SCH (21:27)
[2023-03-27] MEDS: SENNOSIDES 8.6MG TABLET PO SCH (21:28)
[2023-03-28] VITALS: BP 97/52; PULSE 67; RESP 18; TEMP 98.3
[2023-03-28 04:00] VITALS: BP 91/61; PULSE 67; RESP 18; TEMP 97.8
[2023-03-28] MEDS ORDERED: DEXTROSE 50% WATER 50ML SYRINGE IV PRN (07:45)
[2023-03-28 08:00] VITALS: BP 98/56; PULSE 116; RESP 16; TEMP 97.9
[2023-03-28 12:00] VITALS: BP 137/50; PULSE 68; RESP 68; TEMP 97.6
[2023-03-28 12:04] LABS: ALANINE AMINOTRANSFERASE 15 IU/L (10-49); ALBUMIN 3.8 g/dL (3.2-4.8); ASPARTATE AMINOTRANSFERASE 32 IU/L (<34); BILIRUBIN TOTAL 1.2 mg/dL (0.1-1.0); CALCIUM 9.6 mg/dL (8.7-10.4); CARBON DIOXIDE 24 mEq/L (21-32); CHLORIDE 105 mEq/L (98-107); CHOLESTEROL 123 mg/dL (<200); GLUCOSE 94 mg/dL (70-105); HDL CHOLESTEROL 42 mg/dL (>55); LDL CHOLESTEROL 66 mg/dL (5-100); POTASSIUM 4.2 mEq/L (3.5-5.1); SODIUM 139 mEq/L (136-145); TRIGLYCERIDE 74 mg/dL (0-150); UREA NITROGEN BLOOD 16 mg/dL (9-23)
[2023-03-28 12:44] LABS: BASOPHILS % 0.1 % (0.0-2.0); DIFFERENTIAL COMMENT 0; EOSINOPHILS % 2.8 % (0.0-5.0); HEMATOCRIT. 42.6 % (42.0-52.0); HEMOGLOBIN. 13.6 g/dL (14.0-18.0); LYMPHOCYTES % 39.8 % (20.0-50.0); MEAN CORPUSCULAR HEMOGLOBIN 27.3 pg (28.0-32.0); MEAN CORPUSCULAR VOLUME 85.3 fL (80.0-94.0); MEAN PLATELET VOLUME 12.4 fl (7.4-10.4); MONOCYTES % 8.8 % (2.0-8.0); NEUTROPHILS % 48.5 % (40.0-76.0); PLATELET 125 x1000/uL (130-400); RED CELL DISTRIBUTION WIDTH 18.6 % (11.6-14.6); WHITE BLOOD COUNT 6.3 x1000/uL (4.5-11.0)
[2023-03-28 16:00] VITALS: BP 102/83; PULSE 74; RESP 18; TEMP 98.3
[2023-03-28 16:14] VITALS: BP 137/50; PULSE 68; TEMP 97.6; O2SAT 99
== END 2023-03-28 19:00 | disposition home health service (06) | DRG 640 ==
LOC: ER 18:27 → 7EST 20:28 → EDBEDREQ 20:50 → EDBEDREQTM 20:50 → 7EST 03-27 00:37
PROVIDERS: ADMIT Preventive Medicine Clinical Informatics; ATTEND Preventive Medicine Clinical Informatics
DX: E86.0 Dehydration (principal); G92.8 Other toxic encephalopathy; N17.9 Acute kidney failure, unspecified; E87.0 Hyperosmolality and hypernatremia; E78.00 Pure hypercholesterolemia, unspecified; E03.9 Hypothyroidism, unspecified; D69.6 Thrombocytopenia, unspecified; E87.20 Acidosis, unspecified; G40.909 Epilepsy, unspecified, not intractable, without status epilepticus; I11.0 Hypertensive heart disease with heart failure; I25.10 Atherosclerotic heart disease of native coronary artery without angina pectoris; I48.91 Unspecified atrial fibrillation; E86.1 Hypovolemia; I50.9 Heart failure, unspecified; Z66 Do not resuscitate; Z74.01 Bed confinement status; Z79.01 Long term (current) use of anticoagulants; Z79.84 Long term (current) use of oral hypoglycemic drugs; Z86.73 Personal history of transient ischemic attack (TIA), and cerebral infarction without residual deficits; Z93.1 Gastrostomy status; Z99.3 Dependence on wheelchair; Z79.899 Other long term (current) drug therapy
CPT/HCPCS: 36415; 71045; 80048; 80053; 80061; 82140; 82550; 82553; 82962; 83036; 83605; 83735; 83880; 83930; 83935; 84100; 84145; 84300; 84443; 84484; 85025; 85379; 87426; 93005; 99291; J3490; J7070